=== PATIENT | male | born 1950 | race Caucasian/White ===

== ENCOUNTER 2017-04-25 10:57 | Inpatient (IN) ==
[2017-04-25] MEDS ORDERED: Naloxone 0.4 MG/ML INJ IVP PRN (14:50)
[2017-04-25] MEDS ORDERED: Ondansetron ODT 4 MG TAB.RAPDIS SL PRN (14:50)
[2017-04-25 15:12] LABS: Basophils # 0.1 K/mcL (0.0-0.2); Basophils % 0.8 %; Eosinophils # 0.7 K/mcL (0.0-0.6); Eosinophils % 10.9 %; Hematocrit 32.2 % (37.5-50.1); Hemoglobin 9.3 g/dL (12.9-16.9); Immature Granulocytes % 0.5 % (0-4); Lymphocytes # 1.3 K/mcL (0.6-4.6); Lymphocytes % 21.2 %; Mean Corpuscular HGB Conc 28.9 g/dL (31.6-35.5); Mean Corpuscular Hemoglobin 22.2 pg (28.0-33.3); Mean Platelet Volume 10.3 fL (9.4-12.4); Monocytes # 0.6 K/mcL (0.0-1.3); Neutrophils # 3.6 K/mcL (1.6-8.9); Platelet Count 154 K/mcL (140-400); Red Blood Count 4.18 M/mcL (4.19-5.50); Red Cell Distribution Width 19.5 % (11.5-14.5); Segmented Neutrophils % 57.6 %
[2017-04-25 15:25] LABS: Albumin 2.6 g/dL (3.5-5.0); Albumin/Globulin Ratio 0.6 (1.1-2.2); Bilirubin,Total 0.8 mg/dL (0.2-1.2); Calcium 8.8 mg/dL (8.6-10.8); Globulin 4.2 g/dL (2.4-3.5); Potassium 6.1 mEq/L (3.5-4.5); Total Protein 6.8 g/dL (6.0-8.3)
[2017-04-25 15:38] LABS: Hypochromasia Present (Not Present)
[2017-04-25 15:39] LABS: Anisocytosis 1+ (Not Present); Platelet Estimate Normal (Normal)
--- NOTE | 2017-04-25 15:44 | Internal Med History&Physical ---
<Gladys Wade - Last Filed: 04/25/17 16:11> Date of Encounter: 04/25/17 Time of Encounter: 15:36 Assessment and Plan (1) Renal failure (ARF), acute on chronic Current visit: Yes Status: Acute Creatinine increased to 3.3 today from 1.47 on admission to [facility] on 04/20. Patient was admitted with Sepsis and started on Vanc and zosyn. Once Cr bumped, vanc was stopped. Patient also had oliguria, and CT of abdomen and pelvis on 04/23 showed third spacing of fluid with small amount of ascites, anasarca, and mesenteric edema. BNP was also elevated throughout stay with most recent value of 1446 on 04/25. Patient was aggressively diuresed with lasix 100mg IVP BID plus zaroxolyn. Patient reports urine output has been gradually improving with 325mL out yesterday and 200mL out so far today. Hold home dose of benazapril Continue diuresis with daily zaroxolyn and 100mg Lasix IVP BID Retroperitoneal ultrasound ordered strict I/Os Nephrology/Dr. Oneal consulted. Qualifiers: Acute renal failure type: unspecified Chronic kidney disease stage: stage 3 (moderate) Qualified Code(s): N17.9 - Acute kidney failure, unspecified; N18.3 - Chronic kidney disease, stage 3 (moderate) (2) Acute exacerbation of congestive heart failure Current visit: Yes Status: Acute Patient has history of diastolic CHF. He is fluid overloaded with CT abd/ pelvis on 04/23 showing small amount of ascites, anasarca and mesenteric edema. CXR on 04/22 showed cardiomegaly with interstitial pulmonary edema. BNP has been elevated with most recent of 1446. Cardiac diet with 1.5L fluid restriction continuous hospital monitor daily weights strict I/Os Diurese with 100mg Lasix IVP BID plus daily zaroxolyn Qualifiers: Congestive heart failure type: diastolic Qualified Code(s): I50.33 - Acute on chronic diastolic (congestive) heart failure (3) Afib Current visit: Yes Status: Acute Patient with history of Afib on coumadin. His HR has been low, in 40s-50s. Will get an updated EKG. Hold Coreg for HR < 50. INR is supratherapeutic. Will have pharmacy dose coumadin. Continuous hospital monitor. Qualifiers: Atrial fibrillation type: paroxysmal Qualified Code(s): I48.0 - Paroxysmal atrial fibrillation (4) Anticoagulated on Coumadin Current visit: Yes Status: Acute Patient on coumadin for afib. INR is supratherapeutic at 3.6 this morning. Hold today's dose of coumadin. Check PT/INR/PTT daily. Pharmacy to dose coumadin. (5) Sepsis affecting skin Current visit: Yes Status: Acute Patient presented to [facility] on 04/20 with sepsis, chills, elevated WBC, Fever, elevated lactate of 2.45. Source was not identified as UA was reportedly not concerning for infection, CXR did not show pneumonia and blood cultures were still pending. Patient does have chronic BLE edema and has had recurrent episodes of cellulitis. His BLE are erythematous and edematous today , and his reports they look better than previous. I suspect his source of sepsis was cellulitis. His septic symptoms have resolved, he is afebrile and WBC is normal. Will continue Zosyn. (6) Type 2 diabetes mellitus Current visit: Yes Status: Acute Diabetic, heart healthy diet Check blood sugars ACHS sliding scale correction dose ACHS hypoglycemic protocol. Qualifiers: Diabetes mellitus complication status: with unspecified complications Diabetes mellitus residential insulin use: without technician terminal and repeater use Qualified Code( s): E11.8 - Type 2 diabetes mellitus with unspecified complications (7) Hyperkalemia Current visit: Yes Status: Acute Stat labs today revealed potassium of 6.1. Calcium gluconate, 10u insulin and amp of dextrose, as well as kayexalate ordered. Will recheck chemistry daily. Continuous hospital monitor. (8) Hyponatremia Current visit: Yes Status: Acute Sodium of 127, looks to be consistent with baseline at [facility]. Patient on fluid restricted diet of 1.5L daily. Check chemistry daily. (9) DVT prophylaxis Current visit: Yes Status: Acute Sequential compression devices. Patient on coumadin for afib, additional pharmacologic prophylaxis not warranted. Internal Medicine - H&P: HPI Chief complaint: TRELL on CKD Admitted From: Hospital to Hospital Transfer Plans for Post Hospital Care: Home History of present illness: Mr. Otero is a 66 year old male with hypertension, hyperlipidemia, type 2 diabetes, coronary artery disease status post CABG, atrial fibrillation on Coumadin, chronic kidney disease, diastolic CHF, peripheral vascular disease, ulcerative colitis status post partial colectomy transferred from [facility] for TRELL on chronic kidney disease. Patient presented to the hospital on the third with chills, shortness of breath, fever and body aches, was diagnosed with sepsis of unknown cause was treated with Zosyn and Vanc. While there, his sepsis symptoms improved, but his creatinine increased, and the vancomycin was discontinued. However his kidney function continued to decline with creatinine at discharge from their facility of 2.98, and oliguria with low urine output. He was aggressively diuresed, with Lasix 100 mg IV push twice a day with an addition of Zaroxolyn daily, patient reports his urine output has been improving the last few days with 325 mL out yesterday all day, and 200 mL out so far today. This is reportedly an improvement from 2 days ago. Patient follows with Dr. Collier for his chronic kidney disease as an outpatient. Dr. Escalante was called and he requested patient be transferred to our facility. As for the sepsis, UA was reportedly negative for infection, chest x-ray on the fifth showed cardiomegaly with interstitial pulmonary edema. CT of the abdomen and pelvis on the sixth showed no acute in her abdominal or pelvic abnormality, small amount of ascites, anasarca and mesenteric edema, and small bilateral pleural effusions. Patient does have bilateral lower extremity swelling, erythema and tenderness. He also has reportedly previous recurrent cellulitis of his lower extremities, this is likely the source of his sepsis. She is fluid overloaded, his BNP is elevated, most recently at 1446. Additionally his INR is supratherapeutic at 3.6. He is bradycardic with heart rate in the 40s and 50s, this is consistent with records from [place] as well. He is on a beta sachin, we will hold for heart rate less than 50. On exam, patient is resting comfortably, alert and oriented, in no acute distress. Heart has regular rhythm , bradycardic rate. Lungs are mostly clear with mild crackles in bilateral bases. Abdomen is distended, nontender, he does have bilateral lower extremity edema, and erythema. He is currently not complaining of any lightheadedness, chills, sweats, shortness of breath, chest pain, palpitations, nausea, vomiting , diarrhea, abdominal pain. Past Med Surg Social Fam HX - Past Medical History Medical history: atrial fibrillation, CHF, coronary artery disease, diabetes, GERD, hyperlipidemia, hypertension, peripheral artery disease, renal disease - Past Surgical History Surgical History: colectomy, coronary bypass (CABG), LE stent(s) - Social History Smoking Status: Former smoker (20 pack year history) Smokeless Tobacco Status: No Alcohol use: none Drug use: none - Family History Mother Adopted: No Family Member Ethnicity: Non- Living Status: Age at : 70 Cause of : unknown Hx Family Cardiac Disorders: Yes Hx Family Respiratory Disorders: No Hx Family Cancer: No Hx Family GI Disorders: No Hx Family Genitourinary Disorders: Yes (ESRD) Hx Family Endocrine Disorder: Yes (diabetes) Hx Family Musculoskeletal Disorders: No Hx Family Neurologic Disorders: No Hx Family HEENT Disorders: No Hx Family Autoimmune Disorders: No Hx Family Reproductive Disorders: No Hx Family Medical Disorders: No Father Living Status: Cause of : cirrhosis Hx Family GI Disorders: Yes (cirhosis) Internal Medicine - H&P: Meds Amlodipine Besylate/Benazepril [Lotrel 10-40 mg Capsule] 1 tab PO DAILY [History] Aspirin 81 mg PO DAILY 04/25/17 [History] Carvedilol [Coreg] 6.25 mg PO BID 04/25/17 [History] Clopidogrel [Plavix] 75 mg PO DAILY 04/25/17 [History] Furosemide [Lasix] 80 mg PO HS 04/25/17 [History] Gabapentin [Neurontin] 100 mg PO TID 04/25/17 [History] Isosorbide MONOnitrate (24 HR) [Imdur] 60 mg PO DAILY 04/25/17 [History] Magnesium Oxide [Mag-Ox] 400 mg PO DAILY 04/25/17 [History] Pantoprazole Sodium 40 mg PO DAILY 04/25/17 [History] Simvastatin [Zocor] 80 mg PO HS 04/25/17 [History] Warfarin [Coumadin] 2 mg PO MOWEFR 04/25/17 [History] Warfarin [Coumadin] 4 mg PO SUTUTHSA 04/25/17 [History] cloNIDine HCl [Clonidine HCl] 0.4 mg PO BID 04/25/17 [History] metOLazone [Zaroxolyn] 5 mg PO DAILY 04/25/17 [History] 3 Allergy/AdvReac Type Severity Reaction Status Date / Time No Known Allergies Allergy Verified 04/25/17 14:47 All Systems PM: A 10-system review of systems was performed and is negative for pertinent findings except as documented above in the HPI. - Constitutional Constitutional: no chills, no fever(s), no night sweats - EENT Eyes: no change in vision, no discharge, no pain, no photophobia Ears: no ear discharge, no ear pain, no tinnitus Nose, mouth and throat: no dysphagia, no nasal discharge, no neck pain, no sore throat - Cardiovascular Cardiovascular ROS IM: edema, no chest pain, no diaphoresis, no dyspnea, no lightheadedness, no palpitations, no syncope - Respiratory Respiratory: no cough, no dyspnea, no wheezing, no excessive phlegm production - Gastrointestinal Gastrointestinal: no abdominal pain, no diarrhea, no hematemesis, no hematochezia, no melena, no nausea, no vomiting - Genitourinary Genitourinary ROS male: difficulty urinating - Musculoskeletal Musculoskeletal ROS IM: no numbness, no tingling - Integumentary Integumentary IM: no rash, no unusual bruising - Neurological Neurological ROS: no confusion, no convulsions, no focal weakness, no numbness, no tingling, no tremor(s) - Hematologic/Lymphatic Hematologic/Lymphatic: no easy bruising - Constitutional Vitals: Temp Pulse Resp BP Pulse Ox 97.5 F L 50 18 125/64 93 04/25/17 13:33 04/25/17 13:33 04/25/17 13:33 04/25/17 13:33 04/25/17 13:33 General appearance: Present: A&O X 3, pleasant, no acute distress - Head Head exam: Present: atraumatic, normocephalic - Eye Eye exam: Present: PERRL, conjuntiva pink, sclera anicteric Pupils: Present: PERRL - Neck Neck exam general surgery: Present: supple, trachea midline. Absent: lymphadenopathy - Respiratory Respiratory exam: Present: rales (mild crackles in bilateral bases). Absent: accessory muscle use, rhonchi, wheezes - Cardiovascular Cardiovascular exam: Present: bradycardia, RRR, +S1, +S2. Absent: diastolic murmur, gallop, rubs, systolic murmur - GI/Abdominal GI/Abdominal exam: Present: distended, normal bowel sounds, no peritoneal signs. Absent: soft, tenderness - Extremities Exam Extremities exam: Present: pedal edema (+2 BLE edema, erythema), warm, radial pulses palpable and symmetrical. Absent: calf tenderness, cyanotic - Neurological Exam Neurological exam: Present: CN II-XII intact, oriented X3, no focal deficits. Absent: facial droop, speech deficit - Skin Skin exam: Present: dry, intact Internal Med - H&P Results - Labs CBC & Chem 7: 04/25/17 15:04 04/25/17 15:04 Labs: Short CBC 04/25/17 Range/Units 15:04 WBC 6.2 (4.3-11.1) K/mcL Hgb 9.3 L (12.9-16.9) g/dL Hct 32.2 L (37.5-50.1) % Plt Count 154 (140-400) K/mcL BMP 04/25/17 15:04 Sodium 127 L Potassium 6.1 H Chloride 96 L Carbon Dioxide 22 BUN 57 H Creatinine 3.39 H Glucose 151 H Calcium 8.8 Liver Function 04/25/17 Range/Units 15:04 Total Bilirubin 0.8 (0.2-1.2) mg/dL AST 10 (5-34) Units/L ALT 8 (0-55) Units/L Alkaline Phosphatase 236 H (38-126) Units/L Albumin 2.6 L (3.5-5.0) g/dL <Braydon Ruiz H - Last Filed: 04/25/17 16:59> Date of Encounter: 04/25/17 Internal Medicine - H&P: HPI History of present illness: Mr. Otero is a 66 year old male All Systems PM: A 10-system review of systems was performed and is negative for pertinent findings except as documented above in the HPI. - Constitutional Vitals: Temp Pulse Resp BP Pulse Ox 97 F L 51 18 153/72 94 04/25/17 16:04 04/25/17 16:04 04/25/17 16:04 04/25/17 16:04 04/25/17 16:04 Internal Med - H&P Results - Labs CBC & Chem 7: 04/25/17 15:04 09/08/17 15:04 Labs: Short CBC 04/25/17 Range/Units 15:04 WBC 6.2 (4.3-11.1) K/mcL Hgb 9.3 L (12.9-16.9) g/dL Hct 32.2 L (37.5-50.1) % Plt Count 154 (140-400) K/mcL Neutrophils # 3.6 (1.6-8.9) K/mcL BMP 04/25/17 15:04 Sodium 127 L Potassium 6.1 H Chloride 96 L Carbon Dioxide 22 BUN 57 H Creatinine 3.39 H Glucose 151 H Calcium 8.8 Liver Function 04/25/17 Range/Units 15:04 Total Bilirubin 0.8 (0.2-1.2) mg/dL AST 10 (5-34) Units/L ALT 8 (0-55) Units/L Alkaline Phosphatase 236 H (38-126) Units/L Albumin 2.6 L (3.5-5.0) g/dL - Attending Attestation -Acute renal failure likely secondary to vancomycin also in combination of Zosyn Vancomycin discontinued -Acute diastolic CHF/volume overload related to acute renal failure Continue IV Lasix alone and discontinue Zaroxolyn. Nephrology recommendations appreciated -Hyperkalemia, Kayexalate, calcium gluconate, insulin and D10, Kayexalate ordered Admit as inpatient, expected stable at 2 midnights. Full code time spent on this admission For this encounter, I have reviewed the PSYCHOTHERAPIST COUNSELOR or PA documentation, treatment plan, and medical decision making; and I have had face to face time with this patient.
[2017-04-25] MEDS ORDERED: *HR* Dextrose 50 % in Water (Syg) 50 ML SYRINGE IVP ONE (16:06)
[2017-04-25] MEDS ORDERED: Insulin Human Regular 10 UNIT in 0.9 % Sodium Chloride 10 ML IV ONE (16:06)
[2017-04-25] MEDS ORDERED: Calcium Gluconate 1,000 MG in D5% in Water 100 ML IVPB ONE (16:06)
[2017-04-25 16:20] LABS: INR 3.3; Prothrombin Time 36.6 Seconds (9.4-12.1)
[2017-04-25] MEDS ORDERED: D5% in Water 1,000 ML IVC PRN (16:21)
[2017-04-25] MEDS ORDERED: Dextrose Gel 15 GM PO PRN ×2 (16:21)
[2017-04-25] MEDS ORDERED: *HR* Dextrose 50 % in Water (Syg) 50 ML SYRINGE IVP PRN (16:21)
[2017-04-25] MEDS: Piperacillin/Tazobactam 3.375 GM in D5% in Water (Mini-Bag+) 100 ML IVPB SCH ×2 (16:50→23:11)
[2017-04-25] MEDS: Furosemide 40 MG/4 ML VIAL IVP SCH (16:51)
[2017-04-25] MEDS: Insulin LISPRO 300 UNITS/3 ML VIAL SQ SCH ×2 (16:52→23:11)
[2017-04-25] MEDS ORDERED: *HR* Warfarin 2 MG TABLET PO ONE (18:00)
[2017-04-25] MEDS: Gabapentin 100 MG CAPSULE PO SCH (20:29)
[2017-04-25] MEDS: cloNIDine HCl 0.1 MG TABLET PO SCH (20:29)
[2017-04-26 05:57] LABS: INR 3.2; Prothrombin Time 35.8 Seconds (9.4-12.1)
[2017-04-26 05:58] LABS: Basophils # 0.1 K/mcL (0.0-0.2); Basophils % 1.3 %; Eosinophils # 0.7 K/mcL (0.0-0.6); Eosinophils % 10.4 %; Hematocrit 32.6 % (37.5-50.1); Hemoglobin 9.8 g/dL (12.9-16.9); Immature Granulocytes % 0.3 % (0-4); Lymphocytes # 1.3 K/mcL (0.6-4.6); Lymphocytes % 19.9 %; Mean Corpuscular HGB Conc 30.1 g/dL (31.6-35.5); Mean Corpuscular Volume 76.5 fL (83.0-100.0); Monocytes # 0.7 K/mcL (0.0-1.3); Monocytes % 10.7 %; Neutrophils # 3.6 K/mcL (1.6-8.9); Platelet Count 166 K/mcL (140-400); Red Blood Count 4.26 M/mcL (4.19-5.50); Red Cell Distribution Width 19.9 % (11.5-14.5); Segmented Neutrophils % 57.4 %
[2017-04-26 06:00] LABS: Activated Partial Thrombo Time 45.3 Seconds (26.0-36.0)
[2017-04-26 06:07] LABS: Calcium 8.7 mg/dL (8.6-10.8); Potassium 5.6 mEq/L (3.5-4.5)
[2017-04-26 06:15] LABS: Anisocytosis 1+ (Not Present); Large Platelets Present (Not Present); Microcytosis Present (Not Present); Platelet Estimate Normal (Normal)
[2017-04-26] MEDS: amLODIPine 5 MG TABLET PO SCH (08:31)
[2017-04-26] MEDS: Aspirin 81 MG TAB.CHEW PO SCH (08:32)
[2017-04-26] MEDS: Isosorbide MONOnitrate (24 HR) 60 MG TAB.ER.24H PO SCH (08:32)
[2017-04-26] MEDS: Gabapentin 100 MG CAPSULE PO SCH ×3 (08:32→21:03)
[2017-04-26] MEDS: Piperacillin/Tazobactam 3.375 GM in D5% in Water (Mini-Bag+) 100 ML IVPB SCH ×3 (08:32→18:18)
[2017-04-26] MEDS: cloNIDine HCl 0.1 MG TABLET PO SCH ×3 (08:32→21:03)
[2017-04-26] MEDS: Furosemide 40 MG/4 ML VIAL IVP SCH (08:33)
[2017-04-26] MEDS: Insulin LISPRO 300 UNITS/3 ML VIAL SQ SCH ×4 (08:34→21:03)
[2017-04-26] MEDS: Magnesium Oxide 400 MG TABLET PO SCH (08:35)
--- NOTE | 2017-04-26 08:59 | Nephrology Consult Note ---
Date of Encounter: 04/26/17 Time of Encounter: 08:52 Assessment and Plan (1) TRELL (acute kidney injury) Current Visit: Yes Status: Acute No documented UOP in [employer], but presumed Oliguric TRELL on CKD stage III. He has been on massive IV lasix dosing but no reported ototoxicity. 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 Collier in December 2016. Hypervolemic Hyponatremia: from anasarca. Hx of CHF and there is concern for A/ C CHF exacerbation (as per primary) Hyperkalemia, acute: rebounding after kayexalate last night. AF on anticoagulation: to place a dialysis catheter, at least a temporary HD catheter, since his INR is near 3, he will have to have a femoral vein site, rather than IJ, to help lower the risk for bleeding I'll discuss the R/B/I and SE potentials and benefits vs risks of acute HD initiation vs expectant monitoring. Discussed in detail with the Hospitalist team. Will follow with you. Thank you for consulting the [facility] group. (2) CKD (chronic kidney disease), stage III Current Visit: Yes Status: Acute Baseline CKD stage III. He was trending worse back in December when last checked by Dr. Collier. (3) Oligouria Current Visit: Yes Status: Acute More accurately, he has been anuric while here. (4) Acute exacerbation of congestive heart failure Current Visit: Yes Status: Acute Will defer to primary. Fluid removal could be achieved with HD. I would recommend decreasing, actually holding the diuretics since he is starting HD today. Follow strict I/Os, daily weights and fluid as well as Na restriction. Qualifiers: Congestive heart failure type: diastolic Qualified Code(s): I50.33 - Acute on chronic diastolic (congestive) heart failure (5) Anticoagulated on Coumadin Current Visit: Yes Status: Acute Consider holding Coumadin, just in case if he does not have renal recovery and then would need a Permacath. (6) Hyperkalemia Current Visit: Yes Status: Acute See above (7) Hyponatremia Current Visit: Yes Status: Acute See above History of Present Illness - Reason for Consult Consult date: 04/25/17 Acute Kidney Injury, Chronic Kidney Disease Requesting physician: Braydon Ruiz - Chief Complaint TRELL on CKD, Oligouria, Edema, Hyperkalemia, Hyponatremia - History of Present Illness Tomas Otero is a very pleasant 66 y/o WM with a pmh of HTN, AF on Coumadin, CKD stage III (followed by Dr. Collier), PVD and et al who presented as a transfer from an outside hospital where he was initially diagnosed with sepsis secondary b/l LE acute on chronic cellulitis, TRELL, Hyperkalemia and Hyponatremia. He said he last saw Dr. Collier in December. He reported noticing sudden worsening of his LE edema last Friday after hoahaoism. He denied taking NSAIDs. He last saw Dr. Collier at the [facility] office in December and in her notes, he was taking just lasix 40mg po bid and clonidine 0.2mg po bid. He said that he was admitted to [facility] by Friday or Friday and treated with high dose lasix (about 100 to 120mg IV bid). Metolazone was later added, per report d/t diminishing UOP. He remains severely edematous and with worsening renal function each day including hyperkalemia and hyponatremia. He did not affirm CP but did report shortness of breath and did not describe N/V/F/C, dysuria. He did affirm having a diminished appetite but was able to eat breakfast this AM. Last night after arriving at [place], he received Kayexalate 30gm and his K transiently improved then rebounded high again today. The floor RN was present during my interview/exam. Past Med Surg Social Fam HX - Past Medical History Medical history: atrial fibrillation, CHF, coronary artery disease, diabetes, GERD, hyperlipidemia, hypertension, peripheral artery disease, renal disease - Past Surgical History Surgical History: colectomy, coronary bypass (CABG), LE stent(s) - Social History Smoking Status: Former smoker (20 pack year history) Smokeless Tobacco Status: No Alcohol use: none Drug use: none - Family History Mother Adopted: No Family Member Ethnicity: Non- Living Status: Age at : 70 Cause of : unknown Hx Family Cardiac Disorders: Yes Hx Family Respiratory Disorders: No Hx Family Cancer: No Hx Family GI Disorders: No Hx Family Genitourinary Disorders: Yes (ESRD) Hx Family Endocrine Disorder: Yes (diabetes) Hx Family Musculoskeletal Disorders: No Hx Family Neurologic Disorders: No Hx Family HEENT Disorders: No Hx Family Autoimmune Disorders: No Hx Family Reproductive Disorders: No Hx Family Medical Disorders: No Father Living Status: Cause of : cirrhosis Hx Family GI Disorders: Yes (cirhosis) Medications and Allergies Amlodipine Besylate/Benazepril [Lotrel 10-40 mg Capsule] 1 tab PO DAILY [History] Aspirin 81 mg PO DAILY 04/25/17 [History] Carvedilol [Coreg] 6.25 mg PO BID 04/25/17 [History] Clopidogrel [Plavix] 75 mg PO DAILY 04/25/17 [History] Furosemide [Lasix] 80 mg PO HS 04/25/17 [History] Gabapentin [Neurontin] 100 mg PO TID 04/25/17 [History] Isosorbide MONOnitrate (24 HR) [Imdur] 60 mg PO DAILY 04/25/17 [History] Magnesium Oxide [Mag-Ox] 400 mg PO DAILY 04/25/17 [History] Pantoprazole Sodium 40 mg PO DAILY 04/25/17 [History] Simvastatin [Zocor] 80 mg PO HS 04/25/17 [History] Warfarin [Coumadin] 2 mg PO MOWEFR 04/25/17 [History] Warfarin [Coumadin] 4 mg PO SUTUTHSA 04/25/17 [History] cloNIDine HCl [Clonidine HCl] 0.4 mg PO BID 04/25/17 [History] metOLazone [Zaroxolyn] 5 mg PO DAILY 04/25/17 [History] 3 Allergy/AdvReac Type Severity Reaction Status Date / Time No Known Allergies Allergy Verified 04/25/17 14:47 Review of Systems All Systems: reviewed and no additional remarkable complaints except as stated Exam - Vital Signs Vital signs: Initial Vital Signs Temp Pulse Resp BP Pulse Ox 97.5 F L 50 18 125/64 93 04/25/17 13:33 04/25/17 13:33 04/25/17 13:33 04/25/17 13:33 04/25/17 13:33 Vital Signs - Last 8 Hours Temp Pulse Resp BP Pulse Ox 04/26/17 07:56 97.8 F 61 17 146/67 94 04/26/17 04:13 98.5 F 60 16 158/77 92 Intake and Output 04/25/17 04/26/17 04/26/17 23:59 07:59 15:59 Intake Total 500 / 500 100 / 100 Output Total 0 / 0 Balance 500 / 500 100 / 100 Intake: IV Fluids 100 / 100 100 / 100 Zosyn 3.375 GM In 100 / 100 100 / 100 Dextrose 5% (Minibag+) 100 ML 100 ML @ 25 mls/hr IVPB Q8HR ESTRADA Rx#: [id number] Oral 400 / 400 0 / 0 Output: Urine 0 / 0 Other: Stool Size Large Moderate Stool Consistency soft loose liquid Stool Color Brown Brown Yellow # Voids 1 # Bowel Movements 3 1 Weight 96.434 kg Blood Glucose* 227 206 Patient Weight 04/26/17 23:59 Weight 96.434 kg - General Appearance General appearance: well-developed, well-nourished, appears started age, obese, fatigue, frail EENT: ATNC, PERRL, mucous membranes moist Neck: supple Respiratory: course breath sounds Cardiology: edema (tense anasarca up to thighs bilaterally), regular rate, irregular rhythm, normal S1, normal S2 Gastrointestinal: normoactive bowel sounds, no tenderness, no masses, obese Integumentary: erythema, chronic venous stasis Neurologic: no focal deficit, no asterixis, alert and oriented x3 Musculoskeletal: erythema, no cyanosis, no clubbing Psychiatric: mood/affect appropriate, cooperative Results - Lab Results 04/26/17 05:05 04/26/17 05:05 Most recent lab results Calcium 8.7 mg/dL (8.6-10.8) 04/26/17 05:05 I reviewed the above text [place] and also reviewed progress notes (both inpt and outpt), labs, vitals, I/Os, med lists and imaging. - Image Kidney/bladder ultrasound: report reviewed (No hydronephrosis ) Consult Discharge Plan - Plan Referrals: Stuart Cespedes MD [Primary Care Provider] -
[2017-04-26] MEDS ORDERED: metOLazone 5 MG TABLET PO SCH (09:00)
[2017-04-26] MEDS ORDERED: 0.9 % Sodium Chloride 250 ML IVC PRN (10:09)
--- NOTE | 2017-04-26 11:21 | Nephrology Procedure Note ---
Date of procedure: 04/26/17 Pre-op diagnosis: Acute renal failure with refractory hyperkalemia, anuria Post-op diagnosis: same Procedure Performed: femoral dialysis catheter Procedure: I reviewed in detail the risks, benefits, side effect potentials and described to him that his benefits for HD outweigh the potential risks. He both verbally and on paper consented to proceed with placement of a temporary HD catheter. Due to the fact that his INR is 3, only the femoral veins were assessed, which would lower his risks for bleeding. Timeout was performed with the floor nurse present. We marked the site of his left femoral vein, since his right femoral region had no identifiable femoral vein. I and my resident washed our hands and placed a sterile Mask, gown and gloves. A sterile drape was placed, utilizing both the dialysis catheter kit and a CVC kit. The resident placed about 3-4 mL of 1% lidocaine with good local anesthetic effect over the left femoral vein. I then utilized the finder needle and advanced it using real-time ultrasound into the left femoral vein, and on first attempt very slow, nonpulsative blood flow was aspirated. A second attempt was performed and no aspiration or cannulation was achieved. It appears that his femoral vein and femoral artery anatomy is not standard using real-time ultrasound. Plus his INR is about 3. Therefore, no further attempts were performed, and the patient was found to have good hemostatic effect with pressure for about 3-4 minutes. The patient tolerated this procedure well without nausea, chest pain, tachycardia, or vasovagal reaction, or any other adverse events. He tolerated the procedure well. I called and consulted interventional radiology Dr. Carreon to assist today ( Friday) in placing a temporary HD catheter. Anesthesia: local Surgeon: Booker Oneal Chief Bank Examiner: Tanvir Mccormack Estimated blood loss (cc): 5 IV fluids (cc): 0 Urine output (cc): 0 Pathology: none sent Condition: stable Disposition: no change
--- NOTE | 2017-04-26 14:02 | Internal Med Progress Note ---
<KlelauraTanvir goff - Last Filed: 04/26/17 13:51> Date of Encounter: 04/26/17 Time of Encounter: 10:00 - Assessment and plan (1) Renal failure (ARF), acute on chronic Current Visit: Yes Status: Acute Assessment and plan: - Presumed oliguric TRELL C Elsi stage III. - BUN/creatinine of 56/3.76, worsened since yesterday of 57/3.39 - Nephrology following - As being receiving Lasix, however is does not have documented urine output, will hold until he is able to make urine - Nephrology will plan on placing a temporary dialysis catheter today with dialysis this afternoon, tomorrow, Friday - Retroperitoneal ultrasound was negative for acute pathology - Change dose of clonidine to 0.1 mg 3 times a day Qualifiers: Acute renal failure type: unspecified Chronic kidney disease stage: stage 3 (moderate) Qualified Code(s): N17.9 - Acute kidney failure, unspecified; N18.3 - Chronic kidney disease, stage 3 (moderate) (2) Acute exacerbation of congestive heart failure Current Visit: Yes Status: Acute Assessment and plan: - BNP of 2631 emergency Department Fluid restriction, diuresis if he begins to make urine Plan for hemodialysis this afternoon once temporary catheter has been placed Carefully monitor I's and O's Qualifiers: Congestive heart failure type: diastolic Qualified Code(s): I50.33 - Acute on chronic diastolic (congestive) heart failure (3) Afib Current Visit: Yes Status: Acute Assessment and plan: Rate controlled at 61 bpm on carvedilol Warfarin, INR of 3.2, we will attempt to place dialysis catheter in the setting of supratherapeutic INR Qualifiers: Atrial fibrillation type: paroxysmal Qualified Code(s): I48.0 - Paroxysmal atrial fibrillation (4) Sepsis affecting skin Current Visit: Yes Status: Acute Assessment and plan: Reported sepsis from [facility] possibly secondary to bilateral lower extremity cellulitis She reports a significant history of chronic lower extremity edema and erythema and flaking We will continue Zosyn for time being, as vancomycin was discontinued secondary to worsening kidney function Has been afebrile, no white count, vital signs stable. 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 owner operator truck driver insulin use: without intermodal owner operator truck driver use Qualified Code( s): E11.8 - Type 2 diabetes mellitus with unspecified complications; N18.3 - Chronic kidney disease, stage 3 (moderate) (6) Hyperkalemia Current Visit: Yes Status: Acute Assessment and plan: Likely secondary to acute renal failure Most recently 5.6, increased from 5.3 Received calcium gluconate, insulin, Kayexalate upon admission for potassium of 5.9 No EKG changes Given rebound hyperkalemia, will plan for hemodialysis this afternoon once catheter has been placed all carefully monitor and trend (7) Hyponatremia Current Visit: Yes Status: Acute Assessment and plan: Nephrology following, appreciate recommendations Likely hypervolemic hyponatremia secondary to anasarca Will diuresis tolerated, fluid restriction, hemodialysis (8) DVT prophylaxis Current Visit: Yes Status: Acute Assessment and plan: Supratherapeutic INR of 3.2 this morning and Coumadin - Subjective Interval history: Patient was seen and examined at bedside this morning. He states he is feeling overall pretty well, but he does state he is quite anxious and scared about his overall prognosis. He is currently denying any symptoms of fevers, chills, abdominal pain, pain from a source, does admit to some mild shortness of breath. That is increased when lying flat. - Constitutional Vitals: Temp Pulse Resp BP Pulse Ox 97.6 F 58 18 150/74 95 04/26/17 11:23 04/26/17 11:23 04/26/17 11:23 04/26/17 11:23 04/26/17 11:23 General appearance: Present: A&O X 3, pleasant, no acute distress Exam: Gen.: Vitals noted. No acute distress. AAOx3 HEENT: PERRL/EOMI, oropharynx clear, Normocephalic, atraumatic Neck: Supple. No adenopathy. Cardiac: Irregularly irregular, no murmur, +S1/S2 Pulmonary: Bilateral mild rales, equal chest expansion Abdomen: soft, nontender, BS noted, no guarding : No urine output reported per nursing Back: Nontender throughout. MSK: ROM intact, no joint swelling noted Extremities: no BLE edema, nontender calf, no cyanosis or clubbing Neuro: A&Ox3, moves all extremities, no focal deficits Psych: Appropriate mood and behavior Internal Medicine: Result - Labs CBC & Chem 7: 04/26/17 05:05 04/26/17 05:05 Labs: Short CBC 04/25/17 04/26/17 Range/Units 15:04 05:05 WBC 6.2 6.3 (4.3-11.1) K/mcL Hgb 9.3 L 9.8 L (12.9-16.9) g/dL Hct 32.2 L 32.6 L (37.5-50.1) % Plt Count 154 166 (140-400) K/mcL Neutrophils # 3.6 3.6 (1.6-8.9) K/mcL BMP 04/25/17 04/25/17 04/26/17 15:04 22:01 05:05 Sodium 127 L 129 L Potassium 6.1 H 5.3 H 5.6 H Chloride 96 L 96 L Carbon Dioxide 22 19 BUN 57 H 56 H Creatinine 3.39 H 3.76 H Glucose 151 H 212 H Calcium 8.8 8.7 Liver Function 04/25/17 Range/Units 15:04 Total Bilirubin 0.8 (0.2-1.2) mg/dL AST 10 (5-34) Units/L ALT 8 (0-55) Units/L Alkaline Phosphatase 236 H (38-126) Units/L Albumin 2.6 L (3.5-5.0) g/dL - ABG Interpretation ABG results: PT/INR, D-dimer PT 35.8 Seconds (9.4-12.1) H 04/26/17 05:05 - Impressions Impressions Retroperitoneum Ultrasound 04/25/17 18:30 IMPRESSION: Limited in insonation, related to body habitus and anasarca. No hydronephrosis is identified. Incidental note of ascites, mild gallbladder wall thickening, and cholelithiasis. D/ / Agustin Garcia MD / Agustin Garcia MD Interpreting Provider: Agustin Garcia MD - VTE Documentation of Mechanical Device: Intermittent pneumatic compression device Consult Discharge Plan - Plan Referrals: Stuart Cespedes MD [Primary Care Provider] - <Pipe Lerner Libby - Last Filed: 04/26/17 18:34> Date of Encounter: 04/26/17 - Assessment and plan (1) Acute respiratory failure with hypoxia Current Visit: Yes Status: Acute Assessment and plan: Wean oxygen as able. (2) Acute exacerbation of congestive heart failure Current Visit: Yes Status: Acute Qualifiers: Congestive heart failure type: diastolic Qualified Code(s): I50.33 - Acute on chronic diastolic (congestive) heart failure (3) Afib Current Visit: Yes Status: Acute Qualifiers: Atrial fibrillation type: paroxysmal Qualified Code(s): I48.0 - Paroxysmal atrial fibrillation (4) Renal failure (ARF), acute on chronic Current Visit: Yes Status: Acute Qualifiers: Acute renal failure type: unspecified Chronic kidney disease stage: stage 3 (moderate) Qualified Code(s): N17.9 - Acute kidney failure, unspecified; N18.3 - Chronic kidney disease, stage 3 (moderate) (5) Hyperkalemia Current Visit: Yes Status: Acute (6) Type 2 diabetes mellitus Current Visit: Yes Status: Acute Qualifiers: Diabetes mellitus complication status: with kidney complications Diabetes mellitus complication detail: with chronic kidney disease Diabetes mellitus retirement insulin use: without intermodal owner operator truck driver use Chronic kidney disease stage: stage 3 (moderate) Qualified Code(s): E11.22 - Type 2 diabetes mellitus with diabetic chronic kidney disease; N18.3 - Chronic kidney disease, stage 3 ( moderate) - Constitutional Vitals: Temp Pulse Resp BP Pulse Ox 97.9 F 58 18 142/77 95 04/26/17 17:55 04/26/17 11:23 04/26/17 17:55 04/26/17 17:55 04/26/17 11:23 Internal Medicine: Result - Labs CBC & Chem 7: 04/26/17 05:05 04/26/17 05:05 Labs: Short CBC 04/26/17 Range/Units 05:05 WBC 6.3 (4.3-11.1) K/mcL Hgb 9.8 L (12.9-16.9) g/dL Hct 32.6 L (37.5-50.1) % Plt Count 166 (140-400) K/mcL Neutrophils # 3.6 (1.6-8.9) K/mcL BMP 04/25/17 04/26/17 22:01 05:05 Sodium 129 L Potassium 5.3 H 5.6 H Chloride 96 L Carbon Dioxide 19 BUN 56 H Creatinine 3.76 H Glucose 212 H Calcium 8.7 Urine 04/26/17 Range/Units Unknown Urine Color Yellow (Yellow) Urine Clarity Cloudy A (Clear) Urine pH 5.5 (5.0-8.0) pH Units Ur Specific [place] 1.019 (1.010-1.025) Urine Protein Trace (Neg-Trace) mg/dL Urine Glucose (UA) Normal (Normal) mg/dL - ABG Interpretation ABG results: PT/INR, D-dimer PT 35.8 Seconds (9.4-12.1) H 04/26/17 05:05 - Impressions Impressions Retroperitoneum Ultrasound 04/25/17 18:30 IMPRESSION: Limited in insonation, related to body habitus and anasarca. No hydronephrosis is identified. Incidental note of ascites, mild gallbladder wall thickening, and cholelithiasis. D/ / Agustin Garcia MD / Agustin Garcia MD Interpreting Provider: Agustin Garcia MD Guidance Needle Placement Ultrasound 04/26/17 00:00 IMPRESSION: Ultrasound and fluoroscopic guided placement of a temporary right IJ hemodialysis catheter. The catheter is ready for immediate use. D/ / Tanvir Carreon MD / Tanvir Carreon MD Interpreting Provider: Tanvir Carreon MD Insertion Non-Tunneled Catheter 04/26/17 00:00 IMPRESSION: Ultrasound and fluoroscopic guided placement of a temporary right IJ hemodialysis catheter. The catheter is ready for immediate use. D/ / Tanvir Carreon MD / Tanvir Carreon MD Interpreting Provider: Tanvir Carreon MD - Attending Attestation I examined this patient and my medical decision-making was reviewed with the Resident Physician on 04/26/17. I agree with the documented findings, disposition and treatment plan as described except to the extent set forth below. Mr. Otero is currently admitted for exac CHF and acute on chronic renal failure. He is high risk due to new dialysis start today and resp issues. Mr. Otero is worried and afraid. Dialysis to start today. No fever or chills. No pain. Eam Alert Anxious Heart reg Lungs with rales Abd soft Edema present I/P 1. CHF 2. Renal failure Further diagnoses and plan as above.
[2017-04-26] MEDS ORDERED: Heparin 1,000 UNITS/500 mL NS 500 ML ONE (14:36)
[2017-04-26 14:52] LABS: Bilirubin,Urine Negative (Negative); Blood,Urine Negative (Negative); Clarity,Urine Cloudy (Clear); Color,Urine Yellow (Yellow); Glucose,Urine (UA) Normal (Normal); Ketones,Urine Negative (Negative); Leukocyte Esterase,Urine Negative (Negative); Nitrite,Urine Negative (Negative); PH,Urine 5.5 pH Units (5.0-8.0); Protein,Urine Trace mg/dL (Neg-Trace); Specific Gravity,Urine 1.019 (1.010-1.025); Urobilinogen,Urine Normal (Normal)
[2017-04-26 14:55] LABS: Bacteria,Urine None Seen per hpf (None-Few); Hyaline Casts,Urine None Seen per lpf (None-Few); Squamous Epithelial Cell,Urine Many per lpf (None-Few)
[2017-04-26 15:11] LABS: RBC,Urine 0-3 per hpf (0-3)
--- NOTE | 2017-04-26 15:21 | IR Procedure Note ---
Date of procedure: 04/26/17 Consent Obtained: Verbal consent, Written consent Timeout: Correct patient and procedure verified, Correct site verified, Time out performed, Skin prep completed Local anesthetic: Lidocaine 1% Indications: Renal failure Procedure Performed: Temp HD catheter placement Site/Technique: Right IJ temp HD catheter placed in VIR Results/Findings: Temp distal tip at SVC/RA junction Estimated blood loss (cc): 1 Complications: None; Tolerated procedure well Post Procedure Treatment Plan: May use temp HD catheter now
[2017-04-26] MEDS ORDERED: Warfarin perPT PO PRN (18:00)
[2017-04-26] MEDS ORDERED: 0.9 % Sodium Chloride 1,000 ML ONE (18:08)
[2017-04-26 19:00] LABS: Hepatitis B Surface Antigen Nonreactive (Nonreactive)
[2017-04-27] MEDS: Acetaminophen 325 MG TABLET PO PRN (01:51)
[2017-04-27] MEDS: Piperacillin/Tazobactam 3.375 GM in D5% in Water (Mini-Bag+) 100 ML IVPB SCH (05:05)
[2017-04-27 05:15] LABS: Hemoglobin 8.9 g/dL (12.9-16.9); Immature Granulocytes % 0.3 % (0-4); Mean Corpuscular Hemoglobin 22.9 pg (28.0-33.3); Red Blood Count 3.88 M/mcL (4.19-5.50); Red Cell Distribution Width 19.9 % (11.5-14.5)
[2017-04-27 05:17] LABS: Basophils # 0.1 K/mcL (0.0-0.2); Basophils % 0.7 %; Eosinophils # 0.4 K/mcL (0.0-0.6); Eosinophils % 6.5 %; Hematocrit 29.7 % (37.5-50.1); INR 2.5; Immature Platelets 10.3 % (1.1-6.1); Lymphocytes # 1.3 K/mcL (0.6-4.6); Lymphocytes % 18.6 %; Mean Corpuscular Volume 76.5 fL (83.0-100.0); Monocytes # 0.9 K/mcL (0.0-1.3); Monocytes % 12.6 %; Neutrophils # 4.2 K/mcL (1.6-8.9); Platelet Count 147 K/mcL (140-400); Prothrombin Time 27.6 Seconds (9.4-12.1); Segmented Neutrophils % 61.3 %
[2017-04-27 05:27] LABS: Calcium 8.7 mg/dL (8.6-10.8); Potassium 4.9 mEq/L (3.5-4.5); Uric Acid 7.9 mg/dL (3.5-7.2)
[2017-04-27 05:45] LABS: Anisocytosis 2+ (Not Present); Hypochromasia Present (Not Present); Microcytosis Present (Not Present); Platelet Estimate Decreased (Normal)
[2017-04-27] MEDS: cloNIDine HCl 0.1 MG TABLET PO SCH ×3 (08:07→20:44)
[2017-04-27] MEDS: amLODIPine 5 MG TABLET PO SCH (08:07)
[2017-04-27] MEDS: Isosorbide MONOnitrate (24 HR) 60 MG TAB.ER.24H PO SCH (08:07)
[2017-04-27] MEDS: Insulin LISPRO 300 UNITS/3 ML VIAL SQ SCH ×4 (08:08→21:04)
[2017-04-27] MEDS: Magnesium Oxide 400 MG TABLET PO SCH (08:09)
[2017-04-27] MEDS: Gabapentin 100 MG CAPSULE PO SCH ×3 (08:09→20:44)
[2017-04-27] MEDS: Aspirin 81 MG TAB.CHEW PO SCH (08:09)
--- NOTE | 2017-04-27 09:04 | Internal Med Progress Note ---
<Tanvir Mccormack - Last Filed: 04/27/17 10:30> Date of Encounter: 04/27/17 Time of Encounter: 09:02 - Assessment and plan (1) Renal failure (ARF), acute on chronic Current Visit: Yes Status: Acute Assessment and plan: - Presumed oliguric TRELL on CKD stage III. - BUN/creatinine of 45/3.30. Improved from yesterday - Nephrology following, appreciate recommendations - Urine Output yesterday, was previously oliguric. Tolerated his first dialysis session yesterday without complications - We will receive dialysis again today and tomorrow. - Electrolyte imbalances improving - Retroperitoneal ultrasound was negative for acute pathology Qualifiers: Acute renal failure type: unspecified Chronic kidney disease stage: stage 3 (moderate) Qualified Code(s): N17.9 - Acute kidney failure, unspecified; N18.3 - Chronic kidney disease, stage 3 (moderate) (2) Acute exacerbation of congestive heart failure Current Visit: Yes Status: Acute Assessment and plan: - BNP of 2631 emergency Department Fluid restriction, we will continue to hold diuresis and monitor for increased urine output. Fluid will be taken off in dialysis Plan for hemodialysis this afternoon Carefully monitor I's and O's, -1.2 L taken off yesterday Qualifiers: Congestive heart failure type: diastolic Qualified Code(s): I50.33 - Acute on chronic diastolic (congestive) heart failure (3) Afib Current Visit: Yes Status: Acute Assessment and plan: Rate controlled at 51 bpm on carvedilol Temporary dialysis catheter placed successfully in the presence of INR of 3.2 yesterday. Continue Coumadin for anticoagulation. INR 2.5 today Qualifiers: Atrial fibrillation type: paroxysmal Qualified Code(s): I48.0 - Paroxysmal atrial fibrillation (4) Sepsis affecting skin Current Visit: Yes Status: Acute Assessment and plan: - Reported sepsis from [facility] possibly secondary to bilateral lower extremity cellulitis - He reports a significant history of chronic lower extremity edema and erythema and flaking - We will transition to Ancef this afternoon as it is greater skin laly coverage, 1 g every 8 hours (5) Type 2 diabetes mellitus Current Visit: Yes Status: Acute Assessment and plan: Sugar of 191 most recently no documented A1c and records Sliding insulin scale Qualifiers: Diabetes mellitus complication status: with kidney complications Diabetes mellitus complication detail: with chronic kidney disease Diabetes mellitus long-term insulin use: without long-term use Chronic kidney disease stage: stage 3 (moderate) Qualified Code(s): E11.22 - Type 2 diabetes mellitus with diabetic chronic kidney disease; N18.3 - Chronic kidney disease, stage 3 ( moderate) (6) Hyperkalemia Current Visit: Yes Status: Acute Assessment and plan: Likely secondary to acute renal failure Most recent of 4.9, improved since yesterday of 5.6 after receiving dialysis Received calcium gluconate, insulin, Kayexalate upon admission for potassium of 5.9 No EKG changes We will continue to trend after dialysis this afternoon (7) Hyponatremia Current Visit: Yes Status: Acute Assessment and plan: Nephrology following, appreciate recommendations Likely hypervolemic hyponatremia secondary to anasarca Improved from yesterday, most recently 133, up from 129 Uric acid of 7.9, unlikely SIADH etiology Will diuresis tolerated, fluid restriction, hemodialysis (8) DVT prophylaxis Current Visit: Yes Status: Acute Assessment and plan: INR 2.5 this morning and Coumadin - Time Spent With Patient 25 - 35 minutes - Subjective Interval history: Patient was seen and examined at bedside this morning. He states he is feeling better suggested. He tolerated his first dialysis session yesterday afternoon without complaints. His breathing has also improved. He denies any symptoms of fevers, chills, shortness of breath, cough, abdominal pain. He does state that his dialysis catheter was bleeding a small amount last night, however the bleeding has since stopped. He also states he slept much better than yesterday. He also states that he was able to urinate since 500 mL yesterday which is a large improvement from the day before of 50 mL. - Constitutional Vitals: Temp Pulse Resp BP Pulse Ox 97.6 F 61 18 167/69 94 04/27/17 07:57 04/27/17 07:57 04/27/17 07:57 04/27/17 07:57 04/27/17 07:57 General appearance: Present: A&O X 3, pleasant, no acute distress Exam: Gen.: Vitals noted. No acute distress. AAOx3 HEENT: PERRL/EOMI, oropharynx clear, Normocephalic, atraumatic Neck: Supple. No adenopathy. Compression bandage over right IJ temporary dialysis catheter, no signs of bleed. Cardiac: Irregularly irregular rhythm, no murmur, +S1/S2 Pulmonary: CTA bilaterally, no wheezes, rales or rhonchi, equal chest expansion Abdomen: soft, nontender, BS noted, no guarding, mildly distended Back: Nontender throughout. MSK: ROM intact, no joint swelling noted Extremities: no BLE edema, nontender calf, no cyanosis or clubbing Neuro: A&Ox3, moves all extremities, no focal deficits Psych: Appropriate mood and behavior Internal Medicine: Result - Labs CBC & Chem 7: 04/27/17 04:45 04/27/17 04:45 Labs: Short CBC 04/27/17 Range/Units 04:45 WBC 6.8 (4.3-11.1) K/mcL Hgb 8.9 L (12.9-16.9) g/dL Hct 29.7 L (37.5-50.1) % Plt Count 147 (140-400) K/mcL Neutrophils # 4.2 (1.6-8.9) K/mcL BMP 04/27/17 04:45 Sodium 133 L Potassium 4.9 H Chloride 98 Carbon Dioxide 23 BUN 45 H D Creatinine 3.30 H Glucose 183 H Calcium 8.7 Urine 04/26/17 Range/Units Unknown Urine Color Yellow (Yellow) Urine Clarity Cloudy A (Clear) Urine pH 5.5 (5.0-8.0) pH Units Ur Specific [place] 1.019 (1.010-1.025) Urine Protein Trace (Neg-Trace) mg/dL Urine Glucose (UA) Normal (Normal) mg/dL - ABG Interpretation ABG results: PT/INR, D-dimer PT 27.6 Seconds (9.4-12.1) H 04/27/17 04:45 - Impressions Impressions Guidance Needle Placement Ultrasound 04/26/17 00:00 IMPRESSION: Ultrasound and fluoroscopic guided placement of a temporary right IJ hemodialysis catheter. The catheter is ready for immediate use. D/ / Tanvir Carreon MD / Tanvir Carreon MD Interpreting Provider: Tanvir Carreon MD Insertion Non-Tunneled Catheter 04/26/17 00:00 IMPRESSION: Ultrasound and fluoroscopic guided placement of a temporary right IJ hemodialysis catheter. The catheter is ready for immediate use. D/ / Tanvir Carreon MD / Tanvir Carreon MD Interpreting Provider: Tanvir Carreon MD - VTE Documentation of Mechanical Device: Graduated compression elastic hosiery Consult Discharge Plan - Plan Referrals: Stuart Cespedes MD [Primary Care Provider] - <Pipe Lerner - Last Filed: 04/27/17 16:47> Date of Encounter: 04/27/17 - Assessment and plan (1) Acute respiratory failure with hypoxia Current Visit: Yes Status: Acute Assessment and plan: Doing better. Will wean as able as dialysis continues. (2) Acute exacerbation of congestive heart failure Current Visit: Yes Status: Acute Qualifiers: Congestive heart failure type: diastolic Qualified Code(s): I50.33 - Acute on chronic diastolic (congestive) heart failure (3) Afib Current Visit: Yes Status: Acute Qualifiers: Atrial fibrillation type: paroxysmal Qualified Code(s): I48.0 - Paroxysmal atrial fibrillation (4) Renal failure (ARF), acute on chronic Current Visit: Yes Status: Acute Qualifiers: Acute renal failure type: unspecified Chronic kidney disease stage: stage 3 (moderate) Qualified Code(s): N17.9 - Acute kidney failure, unspecified; N18.3 - Chronic kidney disease, stage 3 (moderate) (5) Hyperkalemia Current Visit: Yes Status: Acute (6) Type 2 diabetes mellitus Current Visit: Yes Status: Acute Qualifiers: Diabetes mellitus complication status: with kidney complications Diabetes mellitus complication detail: with chronic kidney disease Diabetes mellitus director long term care insulin use: without long-term use Chronic kidney disease stage: stage 3 (moderate) Qualified Code(s): E11.22 - Type 2 diabetes mellitus with diabetic chronic kidney disease; N18.3 - Chronic kidney disease, stage 3 ( moderate) - Constitutional Vitals: Temp Pulse Resp BP Pulse Ox 98.2 F 61 18 164/85 94 04/27/17 15:34 04/27/17 07:57 04/27/17 15:34 04/27/17 15:34 04/27/17 07:57 Internal Medicine: Result - Labs CBC & Chem 7: 04/27/17 04:45 04/27/17 04:45 Labs: Short CBC 04/27/17 Range/Units 04:45 WBC 6.8 (4.3-11.1) K/mcL Hgb 8.9 L (12.9-16.9) g/dL Hct 29.7 L (37.5-50.1) % Plt Count 147 (140-400) K/mcL Neutrophils # 4.2 (1.6-8.9) K/mcL BMP 04/27/17 04:45 Sodium 133 L Potassium 4.9 H Chloride 98 Carbon Dioxide 23 BUN 45 H D Creatinine 3.30 H Glucose 183 H Calcium 8.7 - ABG Interpretation ABG results: PT/INR, D-dimer PT 27.6 Seconds (9.4-12.1) H 04/27/17 04:45 - Impressions Impressions Guidance Needle Placement Ultrasound 04/26/17 00:00 IMPRESSION: Ultrasound and fluoroscopic guided placement of a temporary right IJ hemodialysis catheter. The catheter is ready for immediate use. D/ / Tanvir Carreon MD / Tanvir Carreon MD Interpreting Provider: Tanvir Carreon MD Insertion Non-Tunneled Catheter 04/26/17 00:00 IMPRESSION: Ultrasound and fluoroscopic guided placement of a temporary right IJ hemodialysis catheter. The catheter is ready for immediate use. D/ / Tanvir Carreon MD / Tanvir Carreon MD Interpreting Provider: Tanvir Carreon MD - Attending Attestation I examined this patient and my medical decision-making was reviewed with the Resident Physician on 04/27/17. I agree with the documented findings, disposition and treatment plan as described except to the extent set forth below. Mr. Otero is currently admitted for acute on chronic renal failure. He remains moderate to high risk due to potential for worsening renal and electrolyte issues. Mr Otero is doing OK. He tolerated dialysis yesterday but was frightened. No fever or chills. No CP. SOB OK. No GI issues. Had some bleeding from catheter site last night. Exam Alert. Comfortable Pressure dressing on neck Mucus membranes dry Heart irreg not tachy Lungs diminished Abd soft Legs with erythema bilaterally. I/P 1. TRELL on CKD 2, Cellulitis versus venous stasis Further diagnoses and plan as above.
[2017-04-27] MEDS ORDERED: 0.9 % Sodium Chloride 250 ML IVC PRN (09:10)
--- NOTE | 2017-04-27 10:09 | Nephrology Progress Note ---
Date of Encounter: 04/27/17 Time of Encounter: 09:15 - Assessment and Plan (1) TRELL (acute kidney injury) Current Visit: Yes Status: Acute Next HD is planned for today: 2.5hr, 2K, goal UF 3kg Hyperkalemia and hyponatremia slowly improving with HD initiation yesterday RIJ temporary HD catheter was placed placed with IR's assistance yesterday; oozing but with pressuring dressing he appears stable. Consider holding Coumadin, just in case he were to need a Permacath, if he does not improve towards the end of this week Discussed with the Hospitalists resident. (2) CKD (chronic kidney disease), stage III Current Visit: Yes Status: Acute B/l CKD stage III (3) Oligouria Current Visit: Yes Status: Acute Continue strict I/Os to help assess if he has any signs of renal recovery (4) Acute exacerbation of congestive heart failure Current Visit: Yes Status: Acute As per primary Qualifiers: Congestive heart failure type: diastolic Qualified Code(s): I50.33 - Acute on chronic diastolic (congestive) heart failure (5) Anticoagulated on Coumadin Current Visit: Yes Status: Acute See above (6) Hyperkalemia Current Visit: Yes Status: Acute Low K+ / renal diet. Due to his TRELL on CKD stage III. (7) Hyponatremia Current Visit: Yes Status: Acute Hypervolemic hyponatremia. Trending better. Subjective Principal diagnosis: TRELL, Anasarca Interval history: Pt was s/e and he reported feeling tired but did not affirm N/V or CP. He completed HD yesterday after receiving a temporary RIJ HD catheter. He did have ozzing from it and pressure dressing was applied. He said his family and paster have all visited him. He was by himself in the room this Am. Objective - Vital Signs Vital signs: Vital Signs Temp Pulse Resp BP Pulse Ox 04/27/17 07:57 97.6 F 61 18 167/69 94 04/27/17 03:37 98.2 F 51 17 159/73 93 04/26/17 23:51 97.5 F L 60 17 142/74 94 04/26/17 21:06 98.2 F 55 18 165/80 95 04/26/17 17:55 97.9 F 18 142/77 04/26/17 17:35 117/61 04/26/17 17:20 112/58 04/26/17 17:05 122/68 04/26/17 16:50 131/67 04/26/17 16:35 107/58 04/26/17 16:20 111/55 04/26/17 16:05 125/68 04/26/17 15:50 128/60 04/26/17 15:35 97.8 F 18 131/74 04/26/17 11:23 97.6 F 58 18 150/74 95 Intake and Output 04/26/17 04/27/17 04/27/17 23:59 07:59 15:59 Intake Total 520 / 520 100 / 100 50 / 50 Output Total 2600 / 2600 380 / 380 0 / 0 Balance -2080 / -2080 -280 / -280 50 / 50 Intake: IV Fluids 100 / 100 Zosyn 3.375 GM In 100 / 100 Dextrose 5% (Minibag+) 100 ML 100 ML @ 25 mls/hr IVPB Q12HR [facility] Rx#: [id number] Oral 520 / 520 50 / 50 Output: Urine 0 / 0 380 / 380 0 / 0 Total Dialysis (HD) 2600 / 2600 Output Other: Meal Dinner Percent of Meal Consumed 35% Stool Size Large Stool Consistency liquid Stool Characteristics [place] Stool Color Brown # Voids 1 # Bowel Movements 1 Weight 99.79 kg Blood Glucose* 194 191 Hemodialysis Net Fluid 2000 Removed (mL) Patient Weight 04/27/17 23:59 Weight 99.79 kg - General Appearance General appearance: Present: well-developed, well-nourished, appears started age EENT: Present: ATNC, PERRL, mucous membranes moist Additional Comments: Right anterior triangel with pressure dressing noted. Respiratory: Present: clear Cardiology: Present: edema, regular rhythm, normal S1, normal S2 Dialysis Vascular Access: Venous Catheter (RIJ temporary HD catheter) Gastrointestinal: Present: normoactive bowel sounds, no tenderness, no guarding Integumentary: Present: warm and dry, erythema, chronic venous stasis Neurologic: Present: no focal deficit, no asterixis, alert and oriented x3 Musculoskeletal: Present: no deformities, erythema Psychiatric: Present: mood/affect appropriate, cooperative - Lab 04/27/17 04:45 04/27/17 04:45 Most recent lab results Calcium 8.7 mg/dL (8.6-10.8) 04/27/17 04:45 Urine Creatinine 62 mg/dL 04/26/17 Unknown Urine Sodium 56.0 mEq/L 04/26/17 Unknown Urine Total Protein 32 mg/dL (1-14) H 04/26/17 Unknown - VTE Documentation of Mechanical Device: Graduated compression elastic hosiery Consult Discharge Plan - Plan Referrals: Stuart Cespedes MD [Primary Care Provider] -
[2017-04-27] MEDS: ceFAZolin 1,000 MG in D5% in Water (Mini-Bag+) 100 ML IVPB SCH (16:08)
[2017-04-27] MEDS ORDERED: 0.9 % Sodium Chloride 1,000 ML ONE (16:28)
[2017-04-27] MEDS ORDERED: *HR* Warfarin 2 MG TABLET PO ONE (18:00)
[2017-04-28] MEDS: ceFAZolin 1,000 MG in D5% in Water (Mini-Bag+) 100 ML IVPB SCH ×2 (00:38→09:02)
[2017-04-28 05:04] LABS: Red Cell Distribution Width 19.9 % (11.5-14.5)
[2017-04-28 05:05] LABS: Hemoglobin 9.7 g/dL (12.9-16.9); Mean Corpuscular HGB Conc 29.4 g/dL (31.6-35.5); Mean Corpuscular Hemoglobin 22.8 pg (28.0-33.3); Mean Corpuscular Volume 77.5 fL (83.0-100.0); Mean Platelet Volume 10.7 fL (9.4-12.4); Platelet Count 137 K/mcL (140-400); Red Blood Count 4.26 M/mcL (4.19-5.50)
[2017-04-28 05:06] LABS: Prothrombin Time 21.5 Seconds (9.4-12.1)
[2017-04-28 05:13] LABS: Calcium 9.1 mg/dL (8.6-10.8); Phosphorous 4.1 mg/dL (2.3-4.7)
[2017-04-28 05:36] LABS: Hemoglobin A1C 9.7 %
[2017-04-28] MEDS: Insulin LISPRO 300 UNITS/3 ML VIAL SQ SCH ×4 (09:02→21:37)
[2017-04-28] MEDS: amLODIPine 5 MG TABLET PO SCH (09:03)
[2017-04-28] MEDS: Aspirin 81 MG TAB.CHEW PO SCH (09:04)
[2017-04-28] MEDS: Isosorbide MONOnitrate (24 HR) 60 MG TAB.ER.24H PO SCH (09:04)
[2017-04-28] MEDS: cloNIDine HCl 0.1 MG TABLET PO SCH ×3 (09:04→21:12)
[2017-04-28] MEDS: Magnesium Oxide 400 MG TABLET PO SCH (09:04)
[2017-04-28] MEDS: Gabapentin 100 MG CAPSULE PO SCH ×3 (09:05→21:12)
--- NOTE | 2017-04-28 09:40 | Nephrology Progress Note ---
Date of Encounter: 04/28/17 Time of Encounter: 09:30 - Assessment and Plan (1) TRELL (acute kidney injury) Current Visit: Yes Status: Acute Next HD is planned for today, 3rd of initial 3: 3hr, 3Kg goal UF Hyperkalemia and hyponatremia slowly improving with HD initiation yesterday RIJ temporary HD catheter: appears stable and no longer ozzing. Continue holding Coumadin, just in case he were to need a Permacath, if he does not improve towards the end of this week Urinary retention noted with 500 cc in bladder. I recommend concepcion and the floor RN said Urology was consulted d/t difficulty in placement. Discussed with the Hospitalists resident, the patient and the patient's . Will assess UOP and SCr on Friday and by Friday, his SCr trend will inform us if he has renal recovery or if he'll need a Permacath. (2) CKD (chronic kidney disease), stage III Current Visit: Yes Status: Acute B/l CKD stage III (3) Oligouria Current Visit: Yes Status: Acute Continue strict I/Os to help assess if he has any signs of renal recovery (4) Acute exacerbation of congestive heart failure Current Visit: Yes Status: Acute As per primary Qualifiers: Congestive heart failure type: diastolic Qualified Code(s): I50.33 - Acute on chronic diastolic (congestive) heart failure (5) Anticoagulated on Coumadin Current Visit: Yes Status: Acute See above (6) Hyperkalemia Current Visit: Yes Status: Acute Low K+ / renal diet. Due to his TRELL on CKD stage III. (7) Hyponatremia Current Visit: Yes Status: Acute Hypervolemic hyponatremia. Trending better. Subjective Principal diagnosis: TRELL, Anasarca Interval history: Pt was s/e this AM. He reported being unable to empty his bladder. His was present and updated on the plan for a 3rd of 3 initiation HD treatments. She asked about metolazone that was started as an outpatient, which has been held now that he has been receiving dialysis. The pt did not affirm CP, shortness of breath, N/V and said that he ate his breakfast today. Objective - Vital Signs Vital signs: Vital Signs Temp Pulse Resp BP Pulse Ox 04/28/17 07:54 97.5 F L 67 17 165/73 97 04/28/17 04:01 98.0 F 69 16 178/82 90 04/28/17 00:23 98.8 F 61 16 149/75 94 04/27/17 19:45 98.6 F 64 16 174/71 94 04/27/17 16:54 98 F 65 18 169/79 95 04/27/17 15:34 98.2 F 18 164/85 04/27/17 15:25 166/82 04/27/17 15:10 164/84 04/27/17 14:55 163/89 04/27/17 14:40 153/73 04/27/17 14:25 157/77 04/27/17 14:10 145/84 04/27/17 13:55 151/78 04/27/17 13:40 146/76 04/27/17 13:25 154/84 04/27/17 13:10 164/89 04/27/17 12:55 97.3 F L 18 156/80 Intake and Output 04/27/17 04/28/17 04/28/17 23:59 07:59 15:59 Intake Total 340 / 340 220 / 220 320 / 320 Output Total 805 / 805 200 / 200 Balance -465 / -465 220 / 220 120 / 120 Intake: IV Fluids 100 / 100 100 / 100 Ancef 1,000 MG In 100 / 100 100 / 100 Dextrose 5% (Minibag+) 100 ML 100 ML @ 200 mls/ hr IVPB Q8HR [facility] Rx#: [id number] Oral 240 / 240 120 / 120 320 / 320 Output: Urine 805 / 805 200 / 200 Other: Meal Dinner Breakfast Percent of Meal Consumed 5% 100% Stool Size Large Small Stool Consistency liquid soft Stool Characteristics [place] Stool Color Brown # Bowel Movements 1 Weight 100.1 kg Blood Glucose* 202 212 Patient Weight 04/28/17 23:59 Weight 100.1 kg - General Appearance General appearance: Present: well-developed, well-nourished, appears started age EENT: Present: ATNC, PERRL, mucous membranes moist Neck: Present: supple Respiratory: Present: course breath sounds Cardiology: Present: edema (tense, erythematous 1+ pretibial pitting edema bilaterally), normal S1, normal S2 Dialysis Vascular Access: Venous Catheter (RIJ temporary HD catheter with dressing that was C/D/I and no longer ozzing.) Gastrointestinal: Present: normoactive bowel sounds, no tenderness, no guarding Integumentary: Present: erythema Neurologic: Present: no focal deficit, no asterixis, alert and oriented x3 Musculoskeletal: Present: no clubbing Psychiatric: Present: mood/affect appropriate, cooperative - Lab 04/28/17 04:30 04/28/17 04:30 Most recent lab results Calcium 9.1 mg/dL (8.6-10.8) 04/28/17 04:30 Phosphorus 4.1 mg/dL (2.3-4.7) 04/28/17 04:30 Urine Creatinine 62 mg/dL 04/26/17 Unknown Urine Sodium 56.0 mEq/L 04/26/17 Unknown Urine Total Protein 32 mg/dL (1-14) H 04/26/17 Unknown - VTE Documentation of Mechanical Device: Graduated compression elastic hosiery Consult Discharge Plan - Plan Referrals: Stuart Cespedes MD [Primary Care Provider] -
[2017-04-28] MEDS ORDERED: 0.9 % Sodium Chloride 250 ML IVC PRN (09:44)
--- NOTE | 2017-04-28 10:29 | Electrocardiograph Report ---
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
--- NOTE | 2017-04-28 11:40 | Venous Imaging Report ---
LE Venous Duplex Patient Name:Tomas Otero Order Number:[id number] Procedure Date:04/27/2017 Date:2Age:66 yrs Gender:Male Location:[facility] Room #: 2A24 Karate Black Belt:Theron Roth RDCS Referring MD:Pipe Lerner DO surveillance agent:Stuart Cespedes MD Reading MD:Dwight Carvajal MD Primary Indications:Swelling Secondary Indications: Risk Factors Yes/No Anticoagulants Yes Impressions: Normal bilateral lower extremity deep and superficial venous exam. Recommendations: After imaging the patient returned to their room. Critical findings reported to [place] in person by Theron Roth RDCS. Findings Venous Duplex Results: Right: Venous imaging of the lower extremity reveals full patency and normal vessel compressibility of the right distal iliac, right common femoral, right superficial femoral, right popliteal, right posterior tibial, right peroneal, right great saphenous and right lesser saphenous. Doppler signals in the evaluated veins were normal. Left: Venous imaging of the lower extremity reveals full patency and normal vessel compressibility of the left distal iliac, left common femoral, left superficial femoral, left popliteal, left posterior tibial, left peroneal, left great saphenous and left lesser saphenous. Doppler signals in the evaluated veins were normal. Prior Study: No prior study available for comparison. Lower Extremity Venous Duplex Side Vein Compress Spontaneous Flow Augment Diameter (cm) Depth (cm) Right Distal Iliac Normal Yes Phasic Yes Right Common Femoral Normal Yes Phasic Yes Right Superficial Femoral Normal Yes Phasic Yes Right Popliteal Normal Yes Phasic Yes Right Posterior Tibial Normal Yes Phasic Yes Right Peroneal Normal Yes Phasic Yes Right Great Saphenous Normal Yes Phasic Yes Right Lesser Saphenous Normal Yes Phasic Yes Left Distal Iliac Normal Yes Phasic Yes Left Common Femoral Normal Yes Phasic Yes Left Superficial Femoral Normal Yes Phasic Yes Left Popliteal Normal Yes Phasic Yes Left Posterior Tibial Normal Yes Phasic Yes Left Peroneal Normal Yes Phasic Yes Left Great Saphenous Normal Yes Phasic Yes Left Lesser Saphenous Normal Yes Phasic Yes Updated by Dwight Carvajal MD on 04/28/2017 11:33:32 AM electronically signed on 04/28/2017 11:33:46 AM with status of Final
--- NOTE | 2017-04-28 13:16 | Internal Med Progress Note ---
<[email or web address] goff - Last Filed: 04/28/17 13:13> Date of Encounter: 04/28/17 Time of Encounter: 10:00 - Assessment and plan (1) Renal failure (ARF), acute on chronic Current Visit: Yes Status: Acute Assessment and plan: - Presumed oliguric TRELL on CKD stage III. - BUN/creatinine of 29/2.48, continues to improve with daily dialysis - Nephrology following, appreciate recommendations - Urine Output yesterday, was previously oliguric. Tolerated his first dialysis session yesterday without complications - We will receive dialysis again today for round 3 of 3, nephrology to determine if long-term dialysis as needed - Electrolyte imbalances improving - Due to inability to urinate with post void volume of 500 mL per nursing notes , fully catheter was attempted to be placed but was unable to. Urology was consulted for placement of Concepcion catheter this afternoon. Qualifiers: Acute renal failure type: unspecified Chronic kidney disease stage: stage 3 (moderate) Qualified Code(s): N17.9 - Acute kidney failure, unspecified; N18.3 - Chronic kidney disease, stage 3 (moderate) (2) Acute exacerbation of congestive heart failure Current Visit: Yes Status: Acute Assessment and plan: - BNP of 2631 emergency Department Fluid restriction, we will continue to hold diuresis and monitor for increased urine output. Fluid will be taken off in dialysis Plan for hemodialysis this afternoon Asymptomatic at this time is tolerating 3 L of oxygen without complaints and speaking in full sentences. states he is able to do himself without become short of breath Qualifiers: Congestive heart failure type: diastolic Qualified Code(s): I50.33 - Acute on chronic diastolic (congestive) heart failure (3) Afib Current Visit: Yes Status: Acute Assessment and plan: Rate controlled at 67 bpm on carvedilol Temporary dialysis catheter placed successfully in the presence of INR of 3.2 Friday We will continue holding Coumadin for possible permacath placements later this week, INR this morning of 2.0 Qualifiers: Atrial fibrillation type: paroxysmal Qualified Code(s): I48.0 - Paroxysmal atrial fibrillation (4) Sepsis affecting skin Current Visit: Yes Status: Acute Assessment and plan: - Reported sepsis from [facility] possibly secondary to bilateral lower extremity cellulitis - He reports a significant history of chronic lower extremity edema and erythema and flaking - We will discontinue Ancef at this time due to unlikely sepsis secondary to cellulitis. More likely chronic venous stasis - Afebrile, vital signs the normal limits, no white count (5) Type 2 diabetes mellitus Current Visit: Yes Status: Acute Assessment and plan: Sugar of 191 most recently. A1c of 9.7 Sliding insulin scale Qualifiers: Diabetes mellitus complication status: with kidney complications Diabetes mellitus complication detail: with chronic kidney disease Diabetes mellitus residential insulin use: without ferry terminal supervisor use Chronic kidney disease stage: stage 3 (moderate) Qualified Code(s): E11.22 - Type 2 diabetes mellitus with diabetic chronic kidney disease; N18.3 - Chronic kidney disease, stage 3 ( moderate) (6) Hyperkalemia Current Visit: Yes Status: Acute Assessment and plan: Resolved Likely secondary to acute renal failure Most recent of 4.0, continues to improve with dialysis We will continue to trend after dialysis this afternoon (7) Hyponatremia Current Visit: Yes Status: Acute Assessment and plan: Resolved Nephrology following, appreciate recommendations Likely hypervolemic hyponatremia secondary to anasarca Improved from yesterday, most recently 136 Uric acid of 7.9, unlikely SIADH etiology Will diuresis tolerated, fluid restriction, hemodialysis (8) DVT prophylaxis Current Visit: Yes Status: Acute Assessment and plan: Holding Coumadin for possible permacath placement Will put in SCDs - Time Spent With Patient 25 - 35 minutes - Subjective Interval history: Patient was seen and examined at bedside this morning. He states he tolerated his dialysis session very well yesterday and has no current complaints. Overall , he is feeling much better than when he was admitted. He is in agreement with all current plans. He does state he was able to urinate 200 mL yesterday, however he was unable to urinate this morning. He does admit to some suprapubic tenderness but otherwise denies any symptoms. - Constitutional Vitals: Temp Pulse Resp BP Pulse Ox 98 F 64 16 175/51 96 04/28/17 10:44 04/28/17 10:44 04/28/17 10:44 04/28/17 10:44 04/28/17 10:44 General appearance: Present: A&O X 3, pleasant, no acute distress Exam: Gen.: Vitals noted. No acute distress. AAOx3 HEENT: PERRL/EOMI, oropharynx clear, Normocephalic, atraumatic Neck: Supple. No adenopathy. Cardiac: Irregularly irregular rhythm, no murmur, +S1/S2 Pulmonary: CTA bilaterally, no wheezes, rales or rhonchi, equal chest expansion Abdomen: Mildly tender diffusely, most pronounced in suprapubic region. soft, nontender, BS noted, no guarding Back: Nontender throughout. MSK: ROM intact, no joint swelling noted Extremities: Chronic bilateral lower extremity erythema and swelling with flaking of skin. no BLE edema, nontender calf, no cyanosis or clubbing Neuro: A&Ox3, moves all extremities, no focal deficits Psych: Appropriate mood and behavior Internal Medicine: Result - Labs CBC & Chem 7: 04/28/17 04:30 04/28/17 04:30 Labs: Short CBC 04/28/17 Range/Units 04:30 WBC 8.7 (4.3-11.1) K/mcL Hgb 9.7 L (12.9-16.9) g/dL Hct 33.0 L (37.5-50.1) % Plt Count 137 L (140-400) K/mcL BMP 04/28/17 04:30 Sodium 136 Potassium 4.0 Chloride 99 Carbon Dioxide 27 BUN 29 H D Creatinine 2.48 H Glucose 230 H Calcium 9.1 - ABG Interpretation ABG results: PT/INR, D-dimer PT 21.5 Seconds (9.4-12.1) H 04/28/17 04:30 - VTE Documentation of Mechanical Device: Graduated compression elastic hosiery Consult Discharge Plan - Plan Referrals: Stuart Cespedes MD [Primary Care Provider] - <Pipe Lerner - Last Filed: 04/28/17 16:40> Date of Encounter: 04/28/17 - Assessment and plan (1) Acute respiratory failure with hypoxia Current Visit: Yes Status: Acute (2) Acute exacerbation of congestive heart failure Current Visit: Yes Status: Acute Qualifiers: Congestive heart failure type: diastolic Qualified Code(s): I50.33 - Acute on chronic diastolic (congestive) heart failure (3) Afib Current Visit: Yes Status: Acute Qualifiers: Atrial fibrillation type: paroxysmal Qualified Code(s): I48.0 - Paroxysmal atrial fibrillation (4) Renal failure (ARF), acute on chronic Current Visit: Yes Status: Suspected Qualifiers: Acute renal failure type: with acute tubular necrosis Chronic kidney disease stage: stage 3 (moderate) Qualified Code(s): N17.0 - Acute kidney failure with tubular necrosis; N18.3 - Chronic kidney disease, stage 3 (moderate ) (5) Hyperkalemia Current Visit: Yes Status: Resolved (6) Type 2 diabetes mellitus Current Visit: Yes Status: Acute Qualifiers: Diabetes mellitus complication status: with kidney complications Diabetes mellitus complication detail: with chronic kidney disease Diabetes mellitus residential insulin use: without residential use Chronic kidney disease stage: stage 3 (moderate) Qualified Code(s): E11.22 - Type 2 diabetes mellitus with diabetic chronic kidney disease; N18.3 - Chronic kidney disease, stage 3 ( moderate) (7) Venous stasis of both lower extremities Current Visit: Yes Status: Chronic - Constitutional Vitals: Temp Pulse Resp BP Pulse Ox 97.7 F 67 16 138/70 97 04/28/17 15:48 04/28/17 15:48 04/28/17 15:48 04/28/17 15:48 04/28/17 15:48 Internal Medicine: Result - Labs CBC & Chem 7: 04/28/17 04:30 04/28/17 04:30 Labs: Short CBC 04/28/17 Range/Units 04:30 WBC 8.7 (4.3-11.1) K/mcL Hgb 9.7 L (12.9-16.9) g/dL Hct 33.0 L (37.5-50.1) % Plt Count 137 L (140-400) K/mcL BMP 04/28/17 04:30 Sodium 136 Potassium 4.0 Chloride 99 Carbon Dioxide 27 BUN 29 H D Creatinine 2.48 H Glucose 230 H Calcium 9.1 - ABG Interpretation ABG results: PT/INR, D-dimer PT 21.5 Seconds (9.4-12.1) H 04/28/17 04:30 - Attending Attestation I examined this patient and my medical decision-making was reviewed with the Resident Physician on 04/28/17. I agree with the documented findings, disposition and treatment plan as described except to the extent set forth below. Mr Otero is currently admitted for acute on chronic renal failure. He remains moderate to high risk due to potential for worsening renal status. Mr Otero has had dialysis and is doing somewhat better. Coumadin on hold for any potential catheter placement. No fever or chills. Retaining urine so concepcion to be placed today. Exam Alert. Comfortable Heart reg No wheeze Abd soft I/P 1. TRELL 2. CKD further diagnoses and plan as above. Hold abx - legs most likely venous stasis.
[2017-04-28] MEDS ORDERED: *HR* Heparin 10,000 UNIT/10 ML VIAL IV PRN (13:36)
--- NOTE | 2017-04-28 17:44 | Urology Procedure Note ---
Date of Encounter: 04/28/17 Time of Encounter: 17:42 Procedures:Urology - Catheter Insertion (Urinary) Bladder Scan/Ultrasound used before catheterization: Yes (400) Estimated amount of urin (mLs): 500 Preparation: Povidone-Iodine Type of catheter inserted: 2 way Catheter Kinyarwanda Size: 16 Topical anesthesia used: Yes Results: successfully catheterized-immediate flow Urine Appearance: Clear Patient tolerated procedure: well Complications: none Additional comments: pt had phimosis but i was able to retract the foreskin enough to visualized meatus and place urojet. 16 nigerien cath placed after urojet without difficulty. OK to remove cath when primary service no longer needs catheter.
[2017-04-28 21:59] LABS: Hepatitis B Surface Antibody 0.62 mIU/mL
[2017-04-29 04:57] LABS: INR 1.8; Prothrombin Time 19.2 Seconds (9.4-12.1)
[2017-04-29 05:08] LABS: Basophils % 0.4 %; Platelet Count 136 K/mcL (140-400); Red Cell Distribution Width 19.8 % (11.5-14.5)
[2017-04-29 05:09] LABS: Eosinophils # 0.5 K/mcL (0.0-0.6); Hemoglobin 8.8 g/dL (12.9-16.9); Immature Granulocytes % 0.3 % (0-4); Lymphocytes # 1.3 K/mcL (0.6-4.6); Lymphocytes % 12.8 %; Mean Corpuscular HGB Conc 29.3 g/dL (31.6-35.5); Mean Corpuscular Volume 78.3 fL (83.0-100.0); Mean Platelet Volume 11.7 fL (9.4-12.4); Monocytes # 1.1 K/mcL (0.0-1.3); Monocytes % 10.4 %; Neutrophils # 7.5 K/mcL (1.6-8.9); Red Blood Count 3.83 M/mcL (4.19-5.50); Segmented Neutrophils % 71.1 %
[2017-04-29 05:27] LABS: Platelet Estimate Normal (Normal)
[2017-04-29 05:28] LABS: Calcium 8.8 mg/dL (8.6-10.8); Phosphorous 3.6 mg/dL (2.3-4.7); Potassium 4.1 mEq/L (3.5-4.5)
[2017-04-29] MEDS: Insulin LISPRO 300 UNITS/3 ML VIAL SQ SCH ×4 (07:54→20:53)
[2017-04-29] MEDS: Aspirin 81 MG TAB.CHEW PO SCH (07:55)
[2017-04-29] MEDS: cloNIDine HCl 0.1 MG TABLET PO SCH ×3 (07:55→20:53)
[2017-04-29] MEDS: Isosorbide MONOnitrate (24 HR) 60 MG TAB.ER.24H PO SCH (07:55)
[2017-04-29] MEDS: amLODIPine 5 MG TABLET PO SCH (07:55)
[2017-04-29] MEDS: Magnesium Oxide 400 MG TABLET PO SCH (07:55)
[2017-04-29] MEDS: Gabapentin 100 MG CAPSULE PO SCH ×3 (07:55→20:53)
--- NOTE | 2017-04-29 08:02 | Nephrology Progress Note ---
Date of Encounter: 04/29/17 Time of Encounter: 07:45 - Assessment and Plan (1) TRELL (acute kidney injury) Current Visit: Yes Status: Acute SCr improved and UOP has improved too. I suspect the improved SCr is not just from dialysis but a helpful contribution from improving renal function. Hold HD today. If SCr improving tomorrow and UOP remains strong, then would plan to remove the temporary HD catheter. Gross hematuria, Appreciate Urology. Should have the concepcion flushed every few hours to avoid clotting. Most likely this hematuria is from concepcion insertion itself since the pt takes Plavix and Coumadin. If he continues to improve by tomorrow, then would be reasonable to trial removal of the concepcion catheter. Edema/chronic lymphedema: Erythema is stable, and the pt's said that he has had LE erythema for "quite awhile" (hence prior to admission). Will reintroduce a lower dose of lasix since he's still attempting to have renal recovery. I would recommend close weight, I/Os and SCr measures to help adjust the dose of the lasix. Holding metolazone as well since he's had several liters removed with dialysis the last three days. Left knee pain, acute: consider checking uric acid to work up gout vs pseudogout. Consider checking Xray of knee, if indicated. Workup as per primary. (2) CKD (chronic kidney disease), stage III Current Visit: Yes Status: Acute B/l CKD stage III (3) Oligouria Current Visit: Yes Status: Acute Continue strict I/Os to help assess if he has any signs of renal recovery. See above (4) Acute exacerbation of congestive heart failure Current Visit: Yes Status: Acute As per primary Qualifiers: Congestive heart failure type: diastolic Qualified Code(s): I50.33 - Acute on chronic diastolic (congestive) heart failure (5) Anticoagulated on Coumadin Current Visit: Yes Status: Acute See above (6) Hyperkalemia Current Visit: Yes Status: Resolved Low K+ / renal diet. Due to his TRELL on CKD stage III. (7) Hyponatremia Current Visit: Yes Status: Acute Hypervolemic hyponatremia. Trending better. (8) Gross hematuria Current Visit: Yes Status: Acute See above (9) Left knee pain Current Visit: Yes Status: Acute See above. As per primary. Qualifiers: Chronicity: acute Qualified Code(s): M25.562 - Pain in left knee Subjective Principal diagnosis: TRELL, Anasarca Interval history: Pt was s/e this AM. He reported feeling better without N/V or uremic symptoms. He affirmed having slept better last night and feels that his edema is improving. He voiced appreciation for the floor nurses and the dialysis nurses, who have "all been excellent," he said. Objective - Vital Signs Vital signs: Vital Signs Temp Pulse Resp BP Pulse Ox 04/29/17 07:20 97.9 F 61 16 149/73 99 04/29/17 03:18 98.7 F 57 18 175/74 98 04/29/17 00:41 99.0 F 57 19 143/73 95 04/28/17 19:33 98.0 F 61 17 157/73 96 04/28/17 15:48 97.7 F 67 16 138/70 97 04/28/17 13:45 97.9 F 17 141/73 04/28/17 13:40 129/74 04/28/17 13:10 136/82 04/28/17 12:40 133/82 04/28/17 12:10 159/77 04/28/17 11:40 155/75 04/28/17 11:10 158/77 04/28/17 10:44 98 F 64 16 175/51 96 04/28/17 10:40 97.9 F 17 163/78 Intake and Output 04/28/17 04/28/17 04/29/17 15:59 23:59 07:59 Intake Total 1160 / 1160 630 / 630 360 / 360 Output Total 4220 / 4220 950 / 950 Balance -3060 / -3060 -320 / -320 360 / 360 Intake: Oral 560 / 560 630 / 630 360 / 360 Intake, Rinseback and 600 / 600 Flushes Output: Urine 620 / 620 400 / 400 Total Dialysis (HD) 3600 / 3600 Output Straight Cath 550 / 550 Other: Meal Lunch Dinner Percent of Meal Consumed 100% 0% Stool Size Moderate Stool Consistency loose Stool Color Brown # Bowel Movements 1 Weight 99.8 kg Blood Glucose* 210 259 248 Hemodialysis Net Fluid 3000 Removed (mL) Patient Weight 04/29/17 23:59 Weight 99.8 kg - General Appearance General appearance: Present: well-developed, well-nourished, appears started age EENT: Present: ATNC, PERRL, mucous membranes moist Neck: Present: supple Respiratory: Present: rhonchi (fine basilar rhonchi) Cardiology: Present: no murmurs, edema (slightly less tense b/l pretibial edema) , regular rate, regular rhythm, normal S1, normal S2 Gastrointestinal: Present: normoactive bowel sounds, no tenderness, no guarding Integumentary: Present: erythema Neurologic: Present: no focal deficit, no asterixis Musculoskeletal: Present: no cyanosis, no clubbing Additional Comments: Left knee slight erythema, new. Psychiatric: Present: mood/affect appropriate, cooperative - Lab 04/29/17 04:40 04/29/17 04:40 Most recent lab results Calcium 8.8 mg/dL (8.6-10.8) 04/29/17 04:40 Phosphorus 3.6 mg/dL (2.3-4.7) 04/29/17 04:40 Urine Creatinine 62 mg/dL 04/26/17 Unknown Urine Sodium 56.0 mEq/L 04/26/17 Unknown Urine Total Protein 32 mg/dL (1-14) H 04/26/17 Unknown - VTE Documentation of Mechanical Device: Graduated compression elastic hosiery Consult Discharge Plan - Plan Referrals: Stuart Cespedes MD [Primary Care Provider] -
[2017-04-29] MEDS: Acetaminophen 325 MG TABLET PO PRN ×2 (08:21→17:19)
[2017-04-29] MEDS: Furosemide 20 MG TABLET PO SCH ×2 (10:17→15:57)
--- NOTE | 2017-04-29 13:09 | Internal Med Progress Note ---
<DanielTanvir goff - Last Filed: 04/29/17 15:59> Date of Encounter: 04/29/17 Time of Encounter: 16:06 - Assessment and plan (1) Renal failure (ARF), acute on chronic Current Visit: Yes Status: Suspected Assessment and plan: -TRELL on CKD stage III. - BUN/creatinine of 21/2.04, continues to improve with daily dialysis. - Nephrology following, appreciate recommendations - Urine Output in [place] catheter. Tolerating during his dialysis sessions well without complaints and good improvement of symptoms and lab values -received dialysis terms 3 of 3 today, nephrology to determine if long-term dialysis is necessary after reviewing lab results tomorrow - Electrolyte imbalances improving Resolved - continue with Penning[place] catheter until patient is able to excrete urine. Pennington catheter in place and he has a documented urine output of 1.5 L over the past 24 hours -We will attempt removal of catheter tomorrow and determine if he is able to urinate Qualifiers: Acute renal failure type: with acute tubular necrosis Chronic kidney disease stage: stage 3 (moderate) Qualified Code(s): N17.0 - Acute kidney failure with tubular necrosis; N18.3 - Chronic kidney disease, stage 3 (moderate ) (2) Acute exacerbation of congestive heart failure Current Visit: Yes Status: Acute Assessment and plan: -Symptoms resolved, not retaining fluid at this time. Euvolemic BNP of 2631 emergency Department Fluid restriction, we will continue to hold diuresis and monitor for increased urine output. Fluid will be taken off in dialysis Asymptomatic at this time is tolerating room air Qualifiers: Congestive heart failure type: diastolic Qualified Code(s): I50.33 - Acute on chronic diastolic (congestive) heart failure (3) Afib Current Visit: Yes Status: Acute Assessment and plan: Rate controlled at 65 bpm on carvedilol Temporary dialysis catheter placed successfully in the presence of INR of 3.2 Friday We will continue holding Coumadin for possible permacath placements tomorrow, current INR of 1.8 We will resume Coumadin on discharge Qualifiers: Atrial fibrillation type: paroxysmal Qualified Code(s): I48.0 - Paroxysmal atrial fibrillation (4) Type 2 diabetes mellitus Current Visit: Yes Status: Acute Assessment and plan: Sugar of 236 most recently. A1c of 9.7 Sliding insulin scale instruction of more rigid monitoring of blood sugars upon discharge Qualifiers: Diabetes mellitus complication status: with kidney complications Diabetes mellitus complication detail: with chronic kidney disease Diabetes mellitus terminal block assembler insulin use: without mcc use Chronic kidney disease stage: stage 3 (moderate) Qualified Code(s): E11.22 - Type 2 diabetes mellitus with diabetic chronic kidney disease; N18.3 - Chronic kidney disease, stage 3 ( moderate) (5) Hyperkalemia Current Visit: Yes Status: Resolved Assessment and plan: Resolved Likely secondary to acute renal failure Most recent of 4.1, continues to improve with dialysis Monitor tomorrow for future need of dialysis, defer to nephrology (6) Hyponatremia Current Visit: Yes Status: Acute Assessment and plan: Resolved Nephrology following, appreciate recommendations Likely hypervolemic hyponatremia secondary to anasarca Improved from yesterday, most recently 136 Uric acid of 7.9, unlikely SIADH etiology Will diuresis tolerated, fluid restriction, hemodialysis (7) DVT prophylaxis Current Visit: Yes Status: Acute Assessment and plan: Holding Coumadin for possible permacath placement Will put in SCDs - Time Spent With Patient 25 - 35 minutes - Subjective Interval history: Patient was seen and examined at bedside this morning. He states he has been tolerating his dialysis session very well yesterday and has no current complaints. Overall, he is feeling much better than when he was admitted. He is in agreement with all current plans. He states he has been able to make urine, however he is still unable to urinate this time. Pennington catheter in place with 100 mL of yellow urine. - Constitutional Vitals: Temp Pulse Resp BP Pulse Ox 98.2 F 49 17 116/63 97 04/29/17 10:55 04/29/17 10:55 04/29/17 10:55 04/29/17 10:55 04/29/17 10:55 General appearance: Present: A&O X 3, pleasant, no acute distress Exam: Gen.: Vitals noted. No acute distress. AAOx3 HEENT: PERRL/EOMI, oropharynx clear, Normocephalic, atraumatic Neck: Supple. No adenopathy. Cardiac: RRR, no murmur, +S1/S2 Pulmonary: CTA bilaterally, no wheezes, rales or rhonchi, equal chest expansion Abdomen: soft, nontender, BS noted, no guarding Back: Nontender throughout. MSK: ROM intact, no joint swelling noted Extremities: Lateral lower extremity erythema, swelling, flaking of skin. Patient states this is chronic. New onset left knee tenderness to palpation over the patella with small amount of deposition. Neuro: A&Ox3, moves all extremities, no focal deficits Psych: Appropriate mood and behavior Internal Medicine: Result - Labs CBC & Chem 7: 04/29/17 04:40 04/29/17 04:40 Labs: Short CBC 04/29/17 Range/Units 04:40 WBC 10.5 (4.3-11.1) K/mcL Hgb 8.8 L (12.9-16.9) g/dL Hct 30.0 L (37.5-50.1) % Plt Count 136 L (140-400) K/mcL Neutrophils # 7.5 (1.6-8.9) K/mcL BMP 04/29/17 04:40 Sodium 137 Potassium 4.1 Chloride 99 Carbon Dioxide 27 BUN 21 Creatinine 2.04 H Glucose 236 H Calcium 8.8 - ABG Interpretation ABG results: PT/INR, D-dimer PT 19.2 Seconds (9.4-12.1) H 04/29/17 04:40 - VTE Documentation of Mechanical Device: Graduated compression elastic hosiery Consult Discharge Plan - Plan Referrals: Stuart Cespedes MD [Primary Care Provider] - 05/06/17 1:30 pm (Please follow up as schedule...) <Trell Lane P - Last Filed: 04/29/17 17:53> Date of Encounter: 04/29/17 - Constitutional Vitals: Temp Pulse Resp BP Pulse Ox 98.0 F 65 16 154/71 93 04/29/17 15:27 04/29/17 15:27 04/29/17 15:27 04/29/17 15:27 04/29/17 15:27 Internal Medicine: Result - Labs CBC & Chem 7: 04/29/17 04:40 04/29/17 04:40 Labs: Short CBC 04/29/17 Range/Units 04:40 WBC 10.5 (4.3-11.1) K/mcL Hgb 8.8 L (12.9-16.9) g/dL Hct 30.0 L (37.5-50.1) % Plt Count 136 L (140-400) K/mcL Neutrophils # 7.5 (1.6-8.9) K/mcL BMP 04/29/17 04:40 Sodium 137 Potassium 4.1 Chloride 99 Carbon Dioxide 27 BUN 21 Creatinine 2.04 H Glucose 236 H Calcium 8.8 - ABG Interpretation ABG results: PT/INR, D-dimer PT 19.2 Seconds (9.4-12.1) H 04/29/17 04:40 - Impressions Impressions Knee X-Ray 04/29/17 10:19 IMPRESSION: No acute abnormality. Mild patellofemoral degenerative change. D/ / 04/29/2017 15:16:41 Tj Muse MD / [facility] Interpreting Provider: Tj Muse MD - Attending Attestation I examined this patient and my medical decision-making was reviewed with the Resident Physician. I agree with the documented findings, disposition and treatment plan as described except to the extent set forth below.
[2017-04-30 05:31] LABS: Alpha 2 Globulin (PEP) 0.83 g/dL (0.48-1.05); Beta Globulin (PEP) 0.86 g/dL (0.48-1.10)
[2017-04-30 05:49] LABS: Hemoglobin 8.4 g/dL (12.9-16.9)
[2017-04-30 05:51] LABS: Immature Platelets 12.1 % (1.1-6.1); Mean Corpuscular Hemoglobin 22.3 pg (28.0-33.3); Mean Corpuscular Volume 76.9 fL (83.0-100.0); Platelet Count 145 K/mcL (140-400); Red Blood Count 3.77 M/mcL (4.19-5.50); Red Cell Distribution Width 19.8 % (11.5-14.5)
[2017-04-30 05:52] LABS: INR 1.6; Prothrombin Time 17.5 Seconds (9.4-12.1)
[2017-04-30 05:59] LABS: Calcium 9.1 mg/dL (8.6-10.8); Potassium 4.2 mEq/L (3.5-4.5)
[2017-04-30 07:38] LABS: IFE Reflexed NOT DONE
[2017-04-30] MEDS: Magnesium Oxide 400 MG TABLET PO SCH (08:41)
[2017-04-30] MEDS: Gabapentin 100 MG CAPSULE PO SCH ×3 (08:41→21:11)
[2017-04-30] MEDS: Aspirin 81 MG TAB.CHEW PO SCH (08:41)
[2017-04-30] MEDS: Insulin LISPRO 300 UNITS/3 ML VIAL SQ SCH ×4 (08:41→21:13)
--- NOTE | 2017-04-30 09:34 | Internal Med Progress Note ---
<Aruna Mccormackew - Last Filed: 04/30/17 11:16> Date of Encounter: 04/30/17 Time of Encounter: 09:34 - Assessment and plan (1) Renal failure (ARF), acute on chronic Current Visit: Yes Status: Suspected Assessment and plan: -TRELL on CKD stage III. - BUN/creatinine of 29/2.33, much improved from admission, however mildly worse than yesterday, 21/2.04 - Nephrology following, appreciate recommendations - Pennington catheter removed by nephrology, will monitor for urine output - Given mild decrease in kidney function, nephrology would like to monitor for an additional day and determine if long-term dialysis is necessary. - Continue fluid resections, small Lasix dose - Continue to hold Coumadin and Plavix for possible permanent catheter placement Qualifiers: Acute renal failure type: with acute tubular necrosis Chronic kidney disease stage: stage 3 (moderate) Qualified Code(s): N17.0 - Acute kidney failure with tubular necrosis; N18.3 - Chronic kidney disease, stage 3 (moderate ) (2) Acute exacerbation of congestive heart failure Current Visit: Yes Status: Acute Assessment and plan: -Resolved. Euvolemic, asymptomatic BNP of 2631 emergency Department Fluid restriction, we will continue small dosage of Lasix Fluid has been taken off in dialysis. Patient to work with physical therapy today, reports being able to walk with walker yesterday down the [place] Qualifiers: Congestive heart failure type: diastolic Qualified Code(s): I50.33 - Acute on chronic diastolic (congestive) heart failure (3) Afib Current Visit: Yes Status: Acute Assessment and plan: Rate controlled at 65 bpm on carvedilol Temporary dialysis catheter placed successfully in the presence of INR of 3.2 Friday We will continue holding Coumadin and Plavix for possible permacath placements tomorrow, current INR of 1.6 We will resume Coumadin on discharge Qualifiers: Atrial fibrillation type: paroxysmal Qualified Code(s): I48.0 - Paroxysmal atrial fibrillation (4) Type 2 diabetes mellitus Current Visit: Yes Status: Acute Assessment and plan: Sugar of 163 most recently. A1c of 9.7 Sliding insulin scale instruction of more rigid monitoring of blood sugars upon discharge Qualifiers: Diabetes mellitus complication status: with kidney complications Diabetes mellitus complication detail: with chronic kidney disease Diabetes mellitus vermin exterminator insulin use: without long-term use Chronic kidney disease stage: stage 3 (moderate) Qualified Code(s): E11.22 - Type 2 diabetes mellitus with diabetic chronic kidney disease; N18.3 - Chronic kidney disease, stage 3 ( moderate) (5) Hyperkalemia Current Visit: Yes Status: Resolved Assessment and plan: Resolved with dialysis Likely secondary to acute renal failure Most recent of 4.2 Monitor tomorrow for future need of dialysis, defer to nephrology (6) Hyponatremia Current Visit: Yes Status: Acute Assessment and plan: Resolved Nephrology following, appreciate recommendations Likely hypervolemic hyponatremia secondary to anasarca most recently 134 Uric acid of 7.9, unlikely SIADH etiology Will diuresis as tolerated, fluid restriction, hemodialysis (7) Knee pain, acute Current Visit: Yes Status: Acute Assessment and plan: X-ray of knee was grossly normal yesterday - Patient reports pain worse with motion - No evidence of warmth, swelling of knee joint - Possible etiologies include gout versus tendinopathy versus bursitis versus patellofemoral pain - We will treat symptomatically for time being, uric acid level, further management as outpatient. Qualifiers: Laterality: left Qualified Code(s): M25.562 - Pain in left knee (8) DVT prophylaxis Current Visit: Yes Status: Acute Assessment and plan: Holding Coumadin for possible permacath placement Will put in SCDs - Time Spent With Patient 25 - 35 minutes - Subjective Interval history: Patient was seen and examined at bedside this morning. He states he is continuing to feel much better than admission. He is very relieved that his [place] catheter has been removed, however has not made urine as of yet. He denies any symptoms of shortness of breath, chest pain, fevers, chills. He does have a new complaint of left knee pain exacerbated with movement but states it does not bother him that much. He also states that he has been having some difficulty sleeping at night. - Constitutional Vitals: Temp Pulse Resp BP Pulse Ox 98.8 F 65 18 162/77 97 04/30/17 07:40 04/30/17 07:40 04/30/17 07:40 04/30/17 07:40 04/30/17 07:40 General appearance: Present: A&O X 3, pleasant, no acute distress Exam: Gen.: Vitals noted. No acute distress. AAOx3 HEENT: PERRL/EOMI, oropharynx clear, Normocephalic, atraumatic Neck: Supple. No adenopathy. Right IJ temporary dialysis catheter in place without using Cardiac: Irregularly irregular, no murmur, +S1/S2 Pulmonary: CTA bilaterally, no wheezes, rales or rhonchi, equal chest expansion Abdomen: soft, nontender, BS noted, no guarding Back: Nontender throughout. MSK: ROM intact, no joint swelling noted Extremities: Bilateral lower extremity erythema, edema chronic. Left knee tender to palpation over anterior surface of patella. No swelling noted. Small erythematous deposition lesion, raised. no cyanosis or clubbing Neuro: A&Ox3, moves all extremities, no focal deficits Psych: Appropriate mood and behavior Internal Medicine: Result - Labs CBC & Chem 7: 04/30/17 04:30 04/30/17 04:30 Labs: Short CBC 04/30/17 Range/Units 04:30 WBC 10.4 (4.3-11.1) K/mcL Hgb 8.4 L (12.9-16.9) g/dL Hct 29.0 L (37.5-50.1) % Plt Count 145 (140-400) K/mcL BMP 04/30/17 04:30 Sodium 134 L Potassium 4.2 Chloride 99 Carbon Dioxide 26 BUN 29 H Creatinine 2.33 H Glucose 163 H Calcium 9.1 - ABG Interpretation ABG results: PT/INR, D-dimer PT 17.5 Seconds (9.4-12.1) H 04/30/17 04:30 - Impressions Impressions Knee X-Ray 04/29/17 10:19 IMPRESSION: No acute abnormality. Mild patellofemoral degenerative change. D/ / 04/29/2017 15:16:41 Tj Muse MD / [facility] Interpreting Provider: Tj Muse MD - VTE Documentation of Mechanical Device: Graduated compression elastic hosiery Consult Discharge Plan - Plan Referrals: Stuart Cespedes MD [Primary Care Provider] - 05/06/17 1:30 pm (Please follow up as schedule...) <Trell Lane P - Last Filed: 04/30/17 17:51> Date of Encounter: 04/30/17 - Constitutional Vitals: Temp Pulse Resp BP Pulse Ox 97.5 F L 69 18 158/74 93 04/30/17 16:32 04/30/17 16:32 04/30/17 16:32 04/30/17 16:32 04/30/17 16:32 Internal Medicine: Result - Labs CBC & Chem 7: 04/30/17 04:30 04/30/17 04:30 Labs: Short CBC 04/30/17 Range/Units 04:30 WBC 10.4 (4.3-11.1) K/mcL Hgb 8.4 L (12.9-16.9) g/dL Hct 29.0 L (37.5-50.1) % Plt Count 145 (140-400) K/mcL BMP 04/30/17 04:30 Sodium 134 L Potassium 4.2 Chloride 99 Carbon Dioxide 26 BUN 29 H Creatinine 2.33 H Glucose 163 H Calcium 9.1 - ABG Interpretation ABG results: PT/INR, D-dimer PT 17.5 Seconds (9.4-12.1) H 04/30/17 04:30 - Impressions Impressions Knee X-Ray 04/29/17 10:19 IMPRESSION: No acute abnormality. Mild patellofemoral degenerative change. D/ / 04/29/2017 15:16:41 Tj Muse MD / [facility] Interpreting Provider: Tj Muse MD - Attending Attestation I examined this patient and my medical decision-making was reviewed with the Resident Physician. I agree with the documented findings, disposition and treatment plan as described except to the extent set forth below. Nephrology/urology recommendations appreciated.
[2017-04-30] MEDS: cloNIDine HCl 0.1 MG TABLET PO SCH ×3 (09:57→21:11)
[2017-04-30] MEDS: amLODIPine 5 MG TABLET PO SCH (09:57)
[2017-04-30] MEDS: Furosemide 20 MG TABLET PO SCH ×2 (09:57→17:35)
[2017-04-30] MEDS: Isosorbide MONOnitrate (24 HR) 60 MG TAB.ER.24H PO SCH (09:57)
--- NOTE | 2017-04-30 10:58 | Nephrology Progress Note ---
Date of Encounter: 04/30/17 Time of Encounter: 09:25 - Assessment and Plan (1) TRELL (acute kidney injury) Current Visit: Yes Status: Acute Bump in SCr. Recommend not discharging or d/c the temporary HD catheter today. Rec monitoring renal function anther 24hr. Would descalate today with d/c of concepcion and to check bladder scans if needed after removal of the concepcion. Continue lasix. Rec Lymphedema evaluation; I think PT performs this here and as an outpatient. Will defer sleep and left knee pain to primary Continue lasix at the present dosing Cont to follow a renal protective strategy (2) CKD (chronic kidney disease), stage III Current Visit: Yes Status: Acute B/l CKD stage III (3) Oligouria Current Visit: Yes Status: Acute Continue strict I/Os to help assess if he has any signs of renal recovery. See above (4) Acute exacerbation of congestive heart failure Current Visit: Yes Status: Acute As per primary Qualifiers: Congestive heart failure type: diastolic Qualified Code(s): I50.33 - Acute on chronic diastolic (congestive) heart failure (5) Anticoagulated on Coumadin Current Visit: Yes Status: Acute See above (6) Hyperkalemia Current Visit: Yes Status: Resolved Low K+ / renal diet. Due to his TRELL on CKD stage III. (7) Hyponatremia Current Visit: Yes Status: Acute Hypervolemic hyponatremia. Trending better. (8) Gross hematuria Current Visit: Yes Status: Acute See above (9) Left knee pain Current Visit: Yes Status: Acute See above. As per primary. Qualifiers: Chronicity: acute Qualified Code(s): M25.562 - Pain in left knee Subjective Principal diagnosis: TRELL, Anasarca Interval history: Pt was s/e this AM. He reported feeling better without N/V or uremic symptoms. Restless night of sleep Objective - Vital Signs Vital signs: Vital Signs Temp Pulse Resp BP Pulse Ox 04/30/17 07:40 98.8 F 65 18 162/77 97 04/30/17 03:20 99.8 F H 71 17 161/82 04/30/17 00:17 99.3 F 71 18 154/73 87 04/29/17 20:00 98.7 F 71 17 165/82 90 04/29/17 15:27 98.0 F 65 16 154/71 93 Intake and Output 04/29/17 04/30/17 04/30/17 23:59 07:59 15:59 Intake Total 120 / 120 Output Total 550 / 550 Balance -430 / -430 Intake: Oral 120 / 120 Output: Catheter 550 / 550 Other: Meal Dinner Breakfast Percent of Meal Consumed 75% 95% Stool Size Copious Stool Consistency soft Stool Characteristics Pasty Stool Color Brown Weight 89.8 kg Blood Glucose* 266 169 Patient Weight 04/30/17 23:59 Weight 89.8 kg - General Appearance Exam: General appearance: Present: well-developed, well-nourished, appears started age EENT: Present: ATNC, PERRL, mucous membranes moist Neck: Present: supple Respiratory: Present: rhonchi (fine basilar rhonchi) Cardiology: Present: no murmurs, edema (slightly less tense b/l pretibial edema) , regular rate, regular rhythm, normal S1, normal S2 Gastrointestinal: Present: normoactive bowel sounds, no tenderness, no guarding Integumentary: Present: erythema Neurologic: Present: no focal deficit, no asterixis Musculoskeletal: Present: no cyanosis, no clubbing Additional Comments: Left knee slight erythema, new. Psychiatric: Present: mood/affect appropriate, cooperative - Lab 04/30/17 04:30 04/30/17 04:30 Most recent lab results Calcium 9.1 mg/dL (8.6-10.8) 04/30/17 04:30 Phosphorus 3.6 mg/dL (2.3-4.7) 04/29/17 04:40 Urine Creatinine 62 mg/dL 04/26/17 Unknown Urine Sodium 56.0 mEq/L 04/26/17 Unknown Urine Total Protein 32 mg/dL (1-14) H 04/26/17 Unknown - VTE Documentation of Mechanical Device: Graduated compression elastic hosiery Consult Discharge Plan - Plan Referrals: Stuart Cespedes MD [Primary Care Provider] - 05/06/17 1:30 pm (Please follow up as schedule...)
[2017-04-30] MEDS: traMADol 50 MG TABLET PO PRN (21:11)
[2017-04-30] MEDS: traZODone 50 MG TABLET PO PRN (21:11)
[2017-05-01 06:06] LABS: Hematocrit 28.6 % (37.5-50.1); Red Cell Distribution Width 19.8 % (11.5-14.5)
[2017-05-01 06:08] LABS: Basophils # 0.1 K/mcL (0.0-0.2); Basophils % 0.6 %; Eosinophils # 0.7 K/mcL (0.0-0.6); Eosinophils % 8.7 %; Hemoglobin 8.4 g/dL (12.9-16.9); Immature Granulocytes % 0.3 % (0-4); Immature Platelets 11.2 % (1.1-6.1); Lymphocytes # 1.3 K/mcL (0.6-4.6); Mean Corpuscular HGB Conc 29.4 g/dL (31.6-35.5); Mean Corpuscular Volume 78.1 fL (83.0-100.0); Mean Platelet Volume 10.9 fL (9.4-12.4); Monocytes % 12.3 %; Neutrophils # 4.8 K/mcL (1.6-8.9); Platelet Count 142 K/mcL (140-400); Red Blood Count 3.66 M/mcL (4.19-5.50); Segmented Neutrophils % 61.1 %
[2017-05-01 06:43] LABS: Calcium 9.2 mg/dL (8.6-10.8); Potassium 4.7 mEq/L (3.5-4.5)
[2017-05-01 08:11] LABS: Platelet Estimate Normal (Normal)
[2017-05-01] MEDS: Insulin LISPRO 300 UNITS/3 ML VIAL SQ SCH ×4 (08:23→22:40)
[2017-05-01] MEDS: Isosorbide MONOnitrate (24 HR) 60 MG TAB.ER.24H PO SCH (08:23)
[2017-05-01] MEDS: Gabapentin 100 MG CAPSULE PO SCH ×3 (08:26→20:55)
[2017-05-01] MEDS: Furosemide 20 MG TABLET PO SCH ×2 (08:26→16:31)
[2017-05-01] MEDS: amLODIPine 5 MG TABLET PO SCH (08:26)
[2017-05-01] MEDS: Magnesium Oxide 400 MG TABLET PO SCH (08:26)
[2017-05-01] MEDS: cloNIDine HCl 0.1 MG TABLET PO SCH ×3 (08:27→20:55)
[2017-05-01] MEDS: Aspirin 81 MG TAB.CHEW PO SCH (08:27)
--- NOTE | 2017-05-01 12:34 | Nephrology Progress Note ---
Date of Encounter: 05/01/17 Time of Encounter: 09:00 - Assessment and Plan (1) TRELL (acute kidney injury) Current Visit: Yes Status: Acute SCr stable. Okay to d/c the concepcion catheter. His primary scallop binder is Dr. Collier; would recommend close follow up in abut 2-3 weeks if possible with a BMP in about 1 week after discharge. This close of follow up is to assess his volume status and renal function since he's been on a lower dose of diuretics than compared to admission. Urinary retention: recommend adding Flomax. Yesterday I asked for PT/OT to assess for compression stockings and for lymphedema clinic follow up. Discussed in detail with the floor RN and the patient plus his . Cont to follow a renal protective strategy (2) CKD (chronic kidney disease), stage III Current Visit: Yes Status: Acute B/l CKD stage III (3) Oligouria Current Visit: Yes Status: Acute Continue strict I/Os to help assess if he has any signs of renal recovery. See above (4) Acute exacerbation of congestive heart failure Current Visit: Yes Status: Acute As per primary Qualifiers: Congestive heart failure type: diastolic Qualified Code(s): I50.33 - Acute on chronic diastolic (congestive) heart failure (5) Anticoagulated on Coumadin Current Visit: Yes Status: Acute Okay to resume home Plavix and Coumadin since he will not need a Permacath. (6) Hyponatremia Current Visit: Yes Status: Acute Hypervolemic hyponatremia. Trending better. (7) Gross hematuria Current Visit: Yes Status: Acute See above (8) Left knee pain Current Visit: Yes Status: Acute See above. As per primary. Qualifiers: Chronicity: acute Qualified Code(s): M25.562 - Pain in left knee Subjective Principal diagnosis: TRELL, Anasarca Interval history: Pt was s/e this AM. He reported feeling better without N/V or uremic symptoms. Restless night of sleep Objective - Vital Signs Vital signs: Vital Signs Temp Pulse Resp BP Pulse Ox 05/01/17 11:32 97.7 F 54 16 126/70 95 05/01/17 07:30 98.4 F 63 16 154/73 91 05/01/17 04:06 98.9 F 57 16 131/80 89 05/01/17 00:38 98.6 F 55 16 127/66 94 04/30/17 20:34 99.2 F 68 18 149/70 90 04/30/17 16:32 97.5 F L 69 18 158/74 93 Intake and Output 04/30/17 05/01/17 05/01/17 23:59 07:59 15:59 Intake Total 120 / 120 240 / 240 Output Total 25 / 25 50 / 50 Balance 95 / 95 190 / 190 Intake: Oral 120 / 120 240 / 240 Output: Urine 25 / 25 50 / 50 Other: Meal Dinner Breakfast Percent of Meal Consumed 20% 70% # Voids 1 1 Weight 90.5 kg 90.5 kg Blood Glucose* 311 163 211 Patient Weight 05/01/17 23:59 Weight 90.5 kg - General Appearance Exam: General appearance: Present: well-developed, well-nourished, appears started age EENT: Present: ATNC, PERRL, mucous membranes moist Neck: Present: supple Respiratory: Present: rhonchi (fine basilar rhonchi) Cardiology: Present: no murmurs, edema (slightly less tense b/l pretibial edema) , regular rate, regular rhythm, normal S1, normal S2 Gastrointestinal: Present: normoactive bowel sounds, no tenderness, no guarding Integumentary: Present: erythema Neurologic: Present: no focal deficit, no asterixis Musculoskeletal: Present: no cyanosis, no clubbing Additional Comments: Left knee slight erythema, new. Psychiatric: Present: mood/affect appropriate, cooperative - Lab 05/01/17 05:43 05/01/17 05:43 Most recent lab results Calcium 9.2 mg/dL (8.6-10.8) 05/01/17 05:43 Phosphorus 3.6 mg/dL (2.3-4.7) 04/29/17 04:40 Urine Creatinine 62 mg/dL 04/26/17 Unknown Urine Sodium 56.0 mEq/L 04/26/17 Unknown Urine Total Protein 32 mg/dL (1-14) H 04/26/17 Unknown - VTE Documentation of Mechanical Device: Graduated compression elastic hosiery Consult Discharge Plan - Plan Referrals: Stuart Cespedes MD [Primary Care Provider] - 05/06/17 1:30 pm (Please follow up as schedule...)
--- NOTE | 2017-05-01 13:10 | Internal Med Progress Note ---
<Aruna Mccormackew - Last Filed: 05/01/17 16:16> Date of Encounter: 05/01/17 Time of Encounter: 10:00 - Assessment and plan (1) Renal failure (ARF), acute on chronic Current Visit: Yes Status: Suspected Assessment and plan: -TRELL on CKD stage III. - BUN/creatinine of 36/2.34, stable from yesterday. 29/2.33 - Nephrology following, appreciate recommendations - Concepcion catheter removed by nephrology, not able to urinate at this time. 500 mL on bladder scan, removed with straight catheter this afternoon. Encouraged bladder training and started flomax per nephrology - Removed IJ per nephology, will restart coumadin and plavix. Will not likely need long winder tender dialysis. - Continue fluid resections, small Lasix dose - Will remain for an additional day to monitor for urine output. Qualifiers: Acute renal failure type: with acute tubular necrosis Chronic kidney disease stage: stage 3 (moderate) Qualified Code(s): N17.0 - Acute kidney failure with tubular necrosis; N18.3 - Chronic kidney disease, stage 3 (moderate ) (2) Acute exacerbation of congestive heart failure Current Visit: Yes Status: Acute Assessment and plan: -Resolved. Euvolemic, asymptomatic BNP of 2631 emergency Department Fluid restriction, we will continue small dosage of Lasix Patient to work with physical therapy today, reports being able to walk with walker down the [place] Qualifiers: Congestive heart failure type: diastolic Qualified Code(s): I50.33 - Acute on chronic diastolic (congestive) heart failure (3) Afib Current Visit: Yes Status: Acute Assessment and plan: Rate controlled at 50-60s bpm on carvedilol Will continue home dose of coumadin and plavix today. Temporary IJ removed. Qualifiers: Atrial fibrillation type: paroxysmal Qualified Code(s): I48.0 - Paroxysmal atrial fibrillation (4) Type 2 diabetes mellitus Current Visit: Yes Status: Acute Assessment and plan: Sugar of 182 most recently. A1c of 9.7 Sliding insulin scale instruction of more rigid monitoring of blood sugars upon discharge Qualifiers: Diabetes mellitus complication status: with kidney complications Diabetes mellitus complication detail: with chronic kidney disease Diabetes mellitus penitentiary insulin use: without long winder tender use Chronic kidney disease stage: stage 3 (moderate) Qualified Code(s): E11.22 - Type 2 diabetes mellitus with diabetic chronic kidney disease; N18.3 - Chronic kidney disease, stage 3 ( moderate) (5) Hyperkalemia Current Visit: Yes Status: Resolved Assessment and plan: Resolved with dialysis Likely secondary to acute renal failure Most recent of 4.7 Monitor tomorrow for future need of dialysis, defer to nephrology (6) Hyponatremia Current Visit: Yes Status: Acute Assessment and plan: Resolved Nephrology following, appreciate recommendations Likely hypervolemic hyponatremia secondary to anasarca most recently 134 Uric acid of 7.9, unlikely SIADH etiology Will diuresis as tolerated, fluid restriction (7) Knee pain, acute Current Visit: Yes Status: Resolved Assessment and plan: X-ray of knee was grossly normal yesterday - Patient reports pain worse with motion - No evidence of warmth, swelling of knee joint - Possible etiologies include gout versus tendinopathy versus bursitis versus patellofemoral pain - We will treat symptomatically for time being, uric acid level, further management as outpatient. Qualifiers: Laterality: left Qualified Code(s): M25.562 - Pain in left knee (8) DVT prophylaxis Current Visit: Yes Status: Acute Assessment and plan: Coumadin resumed Will put in SCDs - Time Spent With Patient 25 - 35 minutes - Subjective Interval history: Patient was seen and examined at bedside this morning. He states he is continuing to feel much better than admission. He has not been able to make much urine since removal of concepcion catheter. He has tried multiple times but only reports dribbling. He denies any symptoms of shortness of breath, chest pain, fevers, chills. His sleep and knee pain have improved. He is in agreement to straight cath today as well as temporary IJ removal. - Constitutional Vitals: Temp Pulse Resp BP Pulse Ox 97.7 F 54 16 126/70 95 05/01/17 11:32 05/01/17 11:32 05/01/17 11:32 05/01/17 11:32 05/01/17 11:32 General appearance: Present: A&O X 3, pleasant, no acute distress Exam: Gen.: Vitals noted. No acute distress. AAOx3 HEENT: PERRL/EOMI, oropharynx clear, Normocephalic, atraumatic Neck: Supple. No adenopathy. Cardiac: Irregularly irregular rhythm, no murmur, +S1/S2 Pulmonary: CTA bilaterally, no wheezes, rales or rhonchi, equal chest expansion Abdomen: soft, nontender, BS noted, no guarding. No suprapubic tenderness. Back: Nontender throughout. MSK: ROM intact, no joint swelling noted Extremities: Bilateral lower extremity edema and erythema secondary to venous stasis. nontender calf, no cyanosis or clubbing Neuro: A&Ox3, moves all extremities, no focal deficits Psych: Appropriate mood and behavior Internal Medicine: Result - Labs CBC & Chem 7: 05/01/17 05:43 05/01/17 05:43 Labs: Short CBC 05/01/17 Range/Units 05:43 WBC 7.8 (4.3-11.1) K/mcL Hgb 8.4 L (12.9-16.9) g/dL Hct 28.6 L (37.5-50.1) % Plt Count 142 (140-400) K/mcL Neutrophils # 4.8 (1.6-8.9) K/mcL BMP 05/01/17 05:43 Sodium 136 Potassium 4.7 H Chloride 100 Carbon Dioxide 27 BUN 36 H Creatinine 2.34 H Glucose 182 H Calcium 9.2 - ABG Interpretation ABG results: PT/INR, D-dimer PT 17.5 Seconds (9.4-12.1) H 04/30/17 04:30 - VTE Documentation of Mechanical Device: Graduated compression elastic hosiery Consult Discharge Plan - Plan Referrals: Stuart Cespedes MD [Primary Care Provider] - 05/06/17 1:30 pm (Please follow up as schedule...) <Trell Lane P - Last Filed: 05/01/17 17:44> Date of Encounter: 05/01/17 - Constitutional Vitals: Temp Pulse Resp BP Pulse Ox 97.7 F 64 16 142/73 93 05/01/17 16:39 05/01/17 16:39 05/01/17 16:39 05/01/17 16:39 05/01/17 16:39 Internal Medicine: Result - Labs CBC & Chem 7: 05/01/17 05:43 05/01/17 05:43 Labs: Short CBC 05/01/17 Range/Units 05:43 WBC 7.8 (4.3-11.1) K/mcL Hgb 8.4 L (12.9-16.9) g/dL Hct 28.6 L (37.5-50.1) % Plt Count 142 (140-400) K/mcL Neutrophils # 4.8 (1.6-8.9) K/mcL BMP 05/01/17 05:43 Sodium 136 Potassium 4.7 H Chloride 100 Carbon Dioxide 27 BUN 36 H Creatinine 2.34 H Glucose 182 H Calcium 9.2 - ABG Interpretation ABG results: PT/INR, D-dimer PT 17.5 Seconds (9.4-12.1) H 04/30/17 04:30 - Attending Attestation I examined this patient and my medical decision-making was reviewed with the Resident Physician. I agree with the documented findings, disposition and treatment plan as described except to the extent set forth below.
[2017-05-01] MEDS ORDERED: *HR* Warfarin 4 MG TABLET PO SCH (18:00)
[2017-05-01] MEDS ORDERED: Warfarin perPT PO PRN (18:00)
[2017-05-01] MEDS: traMADol 50 MG TABLET PO PRN (20:54)
[2017-05-01] MEDS: traZODone 50 MG TABLET PO PRN (20:55)
[2017-05-02] MEDS: traMADol 50 MG TABLET PO PRN (04:51)
[2017-05-02 05:19] LABS: INR 1.5; Prothrombin Time 16.8 Seconds (9.4-12.1)
[2017-05-02 05:21] LABS: Hematocrit 30.4 % (37.5-50.1); Hemoglobin 8.6 g/dL (12.9-16.9); Immature Platelets 12.4 % (1.1-6.1); Mean Corpuscular HGB Conc 28.3 g/dL (31.6-35.5); Mean Corpuscular Hemoglobin 22.3 pg (28.0-33.3); Platelet Count 154 K/mcL (140-400); Red Blood Count 3.85 M/mcL (4.19-5.50); Red Cell Distribution Width 19.6 % (11.5-14.5)
[2017-05-02 05:33] LABS: Calcium 9.4 mg/dL (8.6-10.8); Potassium 5.1 mEq/L (3.5-4.5)
[2017-05-02 07:22] VITALS: BP 145/78
[2017-05-02] MEDS: cloNIDine HCl 0.1 MG TABLET PO SCH (07:57)
[2017-05-02] MEDS: Furosemide 20 MG TABLET PO SCH (07:57)
[2017-05-02] MEDS: amLODIPine 5 MG TABLET PO SCH (07:57)
[2017-05-02] MEDS: Aspirin 81 MG TAB.CHEW PO SCH (07:57)
[2017-05-02] MEDS: Gabapentin 100 MG CAPSULE PO SCH (07:57)
[2017-05-02] MEDS: Isosorbide MONOnitrate (24 HR) 60 MG TAB.ER.24H PO SCH (07:58)
[2017-05-02] MEDS: Magnesium Oxide 400 MG TABLET PO SCH (07:58)
[2017-05-02] MEDS: Insulin LISPRO 300 UNITS/3 ML VIAL SQ SCH ×2 (07:58→11:39)
--- NOTE | 2017-05-02 10:33 | Discharge Summary ---
<BradyTanvir terry - Last Filed: 05/02/17 11:44> Date of Encounter: 05/02/17 Time of Encounter: 10:29 - Discharge Diagnosis (1) Renal failure (ARF), acute on chronic Priority: Primary Status: Resolved Qualifiers: Acute renal failure type: with acute tubular necrosis Chronic kidney disease stage: stage 3 (moderate) Qualified Code(s): N17.0 - Acute kidney failure with tubular necrosis; N18.3 - Chronic kidney disease, stage 3 (moderate ) (2) Acute exacerbation of congestive heart failure Priority: Secondary Status: Resolved Qualifiers: Congestive heart failure type: diastolic Qualified Code(s): I50.33 - Acute on chronic diastolic (congestive) heart failure (3) Afib Priority: Secondary Status: Chronic Qualifiers: Atrial fibrillation type: paroxysmal Qualified Code(s): I48.0 - Paroxysmal atrial fibrillation (4) Type 2 diabetes mellitus Priority: Secondary Status: Chronic Qualifiers: Diabetes mellitus complication status: with kidney complications Diabetes mellitus complication detail: with chronic kidney disease Diabetes mellitus half-way insulin use: without long term care pharmacist use Chronic kidney disease stage: stage 3 (moderate) Qualified Code(s): E11.22 - Type 2 diabetes mellitus with diabetic chronic kidney disease; N18.3 - Chronic kidney disease, stage 3 ( moderate) (5) Hyperkalemia Priority: Secondary Status: Resolved (6) Hyponatremia Priority: Secondary Status: Resolved (7) Knee pain, acute Priority: Secondary Status: Resolved Qualifiers: Laterality: left Qualified Code(s): M25.562 - Pain in left knee (8) DVT prophylaxis Priority: Secondary Status: Acute - Discharge Medications Prescriptions: Furosemide [Lasix] 20 mg PO BIDDIURETIC #60 tab Tamsulosin [Flomax] 0.4 mg PO DAILY #30 cap Home Medications: Amlodipine Besylate/Benazepril [Lotrel 10-40 mg Capsule] 1 tab PO DAILY [History] Aspirin 81 mg PO DAILY 04/25/17 [History] Carvedilol [Coreg] 6.25 mg PO BID 04/25/17 [History] Clopidogrel [Plavix] 75 mg PO DAILY 04/25/17 [History] Furosemide [Lasix] 80 mg PO HS 04/25/17 [History] Gabapentin [Neurontin] 100 mg PO TID 04/25/17 [History] Isosorbide MONOnitrate (24 HR) [Imdur] 60 mg PO DAILY 04/25/17 [History] Magnesium Oxide [Mag-Ox] 400 mg PO DAILY 04/25/17 [History] Pantoprazole Sodium 40 mg PO DAILY 04/25/17 [History] Simvastatin [Zocor] 80 mg PO HS 04/25/17 [History] Warfarin [Coumadin] 2 mg PO MOWEFR 04/25/17 [History] Warfarin [Coumadin] 4 mg PO SUTUTHSA 04/25/17 [History] cloNIDine HCl [Clonidine HCl] 0.4 mg PO BID 04/25/17 [History] metOLazone [Zaroxolyn] 5 mg PO DAILY 04/25/17 [History] Furosemide [Lasix] 20 mg PO BIDDIURETIC #60 tab 05/02/17 [Rx] Tamsulosin [Flomax] 0.4 mg PO DAILY #30 cap 05/02/17 [Rx] Allergies/Adverse Reactions: 3 Allergy/AdvReac Type Severity Reaction Status Date / Time No Known Allergies Allergy Verified 04/25/17 14:47 Date of admission: 04/25/17 13:04 Primary care physician: Stuart Cespedes, Consults: 04/25/17 13:44 Consult to Pastoral Services [CONS] Routine Comment: 04/25/17 14:57 Consult to Nephrology [CONS] Routine Consulting Provider: Kidney Ivet/ZAHRA/AFSHIN/JELENA Reason for Consult: 66M [address] Collier transferred from [place] with TRELL on CKD, most recent Cr 2.98 up from baseline of 1.47. Call Completed: Yes 04/26/17 10:15 Consult to Dialysis [CONS] ONCE 04/26/17 11:22 Consult to Interventional Radiology [CONS] Routine Consulting Provider: Radiology Interventional Cols Reason for Consult: Please evaluate for placement of a temporary HD catheter. First attempted by me without successful placement. Time Notified: 11:15 Call Completed: Yes 04/27/17 09:15 Consult to Dialysis [CONS] ONCE 04/28/17 09:45 Consult to Dialysis [CONS] ONCE 04/30/17 09:27 Consult to Occupational Therapy [CONS] Routine Comment: Evaluate, develop and implement POC Reason for Consult: weakness Consult to Physical Therapy [CONS] Routine Comment: Evaluate, develop and implement POC Reason for Consult: Weakness and lyphadema wraps? 05/01/17 07:59 Consult to Scientific Informatics Leader [CONS] Routine Reason for SW Consult: needs ecf Discharging clinician: Tanvir Mccormack Anticipated date of discharge: 05/02/17 - Patient Status Disposition: Home Health Service Condition: Fair Functional capacity at discharge: uses cane/walker Overall status at discharge: patient is progressing back to baseline - Discharge Instructions Follow Up With: Stuart Cespedes MD [Primary Care Provider] - 05/06/17 1:30 pm (Please follow up as schedule...) Bobby Redd MD [Partnered Physician] - 05/07/17 3:00 pm (Please follow up as schedule...) Additional Instructions: Please follow up with your primary care physician and Dr. Collier for further management of your chronic conditions. Continue to take all your meds as prescribed and watch the carbohydrates for the diabetes. - Diet and Activity Activity: as per physical therapy, increase activity as tolerated, resume usual activities as tolerated Diet: diabetic diet Hospital course: Mr. Najera is a 66 year old male who presented the the ED from [facility] for TRELL on chronic kidney disease. Patient presented to the hospital on the third with chills, shortness of breath, fever and body aches, was diagnosed with sepsis of unknown cause was treated with Zosyn and Vanc. While there, his sepsis symptoms improved, but his creatinine increased, and the vancomycin was discontinued. However his kidney function continued to decline with creatinine at discharge from their facility of 2.98, and oliguria with low urine output. He was aggressively diuresed, with Lasix 100 mg IV push twice a day with an addition of Zaroxolyn daily. Patient follows with Dr. Collier for his chronic kidney disease as an outpatient. Dr. Escalante was called and he requested patient be transferred to our facility. As for the sepsis, UA was reportedly negative for infection, chest x-ray on the fifth showed cardiomegaly with interstitial pulmonary edema. CT of the abdomen and pelvis on the sixth showed no acute in her abdominal or pelvic abnormality, small amount of ascites, anasarca and mesenteric edema, and small bilateral pleural effusions. He is fluid overloaded, his BNP is elevated, most recently at 1446. Additionally his INR is supratherapeutic at 3.6. Vital signs were significant for bradycardia on admission and his BB was held. Neprhology was consulted for worsening renal function. During course of hospital stay, Mr. najera gradually improved. He was given a temporary IJ dialysis catheter which he tolerated well. He underwent 3 sessions of dialysis with improvement of his kidney function. renal US showed no hydronephrosis. After 3 days of dialysis he began to make urine and concepcion catheter was placed. He was initially placed on zosyn for the possible LE cellulitis, and was changed to ancef for better skin laly coverage. This was discontinued for unlikely sepsis picture. His also presented with hyperkalemia and hyponatremia both of which improved with dialysis. Per nephrology, patient will likely not need half-way dialysis at this time and his kidney function has improved back to baseline. Temporary dialysis catheter was removed, concepcion discontinued. After a small decrease in renal function, we monitored him for an additional 24 hours and made sure patient could excrete urine. On day of discharge, patient's Vital signs were stable, lab values stable, patient had no complaints. He was instructed to follow up with his PCP and Dr. Collier (nephro) within a week. He was also instructed to better control his diabetes. He will be discharged home in stable medical condition. He was evaluated by PT/OT who recommend SNF/ECF, however patient and states that they would like home health. - Time Spent with Patient Total time spent providing and/or coordinating discharge services:40 minutes - Constitutional Vitals: Temp Pulse Resp BP Pulse Ox 98.3 F 62 18 145/78 90 05/02/17 07:18 05/02/17 07:18 05/02/17 07:18 05/02/17 07:18 05/02/17 07:18 General appearance: Present: A&O X 3, pleasant, no acute distress - Head Head exam: Present: atraumatic, normal inspection, normocephalic - ENT ENT exam: Present: mucous membranes moist - Respiratory Respiratory exam: Present: CTAB. Absent: rales, rhonchi, stridor, wheezes - Cardiovascular Cardiovascular exam: Present: irregular rhythm, +S1, +S2. Absent: diastolic murmur, rubs, systolic murmur, tachycardia - GI/Abdominal GI/Abdominal exam: Present: normal bowel sounds, soft. Absent: mass, tenderness - Extremities Exam Extremities exam: Present: warm. Absent: calf tenderness Additional comments: Chronic b/l LE swelling and erythema secondary to chronic venous stasis - Neurological Exam Neurological exam: Present: CN II-XII intact, no focal deficits. Absent: speech deficit - Psychiatric Psychiatric exam: Present: normal affect, normal mood - VTE Documentation of Mechanical Device: Graduated compression elastic hosiery <Ariana,Trell P - Last Filed: 05/02/17 17:43> Date of Encounter: 05/02/17 Date of admission: 04/25/17 13:04 Primary care physician: Stuart Cespedes, Consults: 04/25/17 13:44 Consult to Pastoral Services [CONS] Routine Comment: 04/25/17 14:57 Consult to Nephrology [CONS] Routine Consulting Provider: Kidney Ivet/ZAHRA/AFSHIN/JELENA Reason for Consult: 66[address] Collier transferred from [place] with TRELL on CKD, most recent Cr 2.98 up from baseline of 1.47. Call Completed: Yes 04/26/17 10:15 Consult to Dialysis [CONS] ONCE 04/26/17 11:22 Consult to Interventional Radiology [CONS] Routine Consulting Provider: Radiology Interventional Cols Reason for Consult: Please evaluate for placement of a temporary HD catheter. First attempted by me without successful placement. Time Notified: 11:15 Call Completed: Yes 04/27/17 09:15 Consult to Dialysis [CONS] ONCE 04/28/17 09:45 Consult to Dialysis [CONS] ONCE 04/30/17 09:27 Consult to Occupational Therapy [CONS] Routine Comment: Evaluate, develop and implement POC Reason for Consult: weakness Consult to Physical Therapy [CONS] Routine Comment: Evaluate, develop and implement POC Reason for Consult: Weakness and lyphadema wraps? 05/01/17 07:59 Consult to Scientific Informatics Leader [CONS] Routine Reason for SW Consult: needs ecf Hospital course: Mr. Najera is a 66 year old male - Time Spent with Patient Total time spent providing and/or coordinating discharge services: - Constitutional Vitals: Temp Pulse Resp BP Pulse Ox 98.3 F 62 18 145/78 94 05/02/17 07:18 05/02/17 07:18 05/02/17 07:18 05/02/17 07:18 05/02/17 11:08 - Attending Attestation I examined this patient and my medical decision-making was reviewed with the Resident Physician. I agree with the documented findings, disposition and treatment plan as described except to the extent set forth below.
--- NOTE | 2017-05-02 11:00 | Physician Discharge Referral ---
<DanielTanvir goff - Last Filed: 05/02/17 10:58> Home Health/Hosp Referral Info Transfer to: Home Health Provider in Charge Post Discharge: PCP - Diagnosis (1) Renal failure (ARF), acute on chronic Priority: Primary Status: Resolved (2) Acute exacerbation of congestive heart failure Priority: Secondary Status: Resolved (3) Afib Priority: Secondary Status: Chronic (4) Type 2 diabetes mellitus Priority: Secondary Status: Chronic (5) Hyperkalemia Priority: Secondary Status: Resolved (6) Hyponatremia Priority: Secondary Status: Resolved (7) Knee pain, acute Priority: Secondary Status: Resolved (8) DVT prophylaxis Priority: Secondary Status: Acute - Respiratory Orders Oxygen / L per min (2) Smoking Cessation: Smoking cessation has been advised. For more information, call the [place] Quit Line at 6-308-JBHN-NOW. - Diet/Nutrition Diet/Nutrition Orders: Regular, No Concentrated Sweets - Activity Activity Orders: Ambulate - Services Needed Following services are medically necessary services: Physical Therapy, Occupational Therapy - Transfer Medications Prescriptions: Furosemide [Lasix] 20 mg PO BIDDIURETIC #60 tab Tamsulosin [Flomax] 0.4 mg PO DAILY #30 cap Home Medications: Amlodipine Besylate/Benazepril [Lotrel 10-40 mg Capsule] 1 tab PO DAILY [History] Aspirin 81 mg PO DAILY 04/25/17 [History] Carvedilol [Coreg] 6.25 mg PO BID 04/25/17 [History] Clopidogrel [Plavix] 75 mg PO DAILY 04/25/17 [History] Furosemide [Lasix] 80 mg PO HS 04/25/17 [History] Gabapentin [Neurontin] 100 mg PO TID 04/25/17 [History] Isosorbide MONOnitrate (24 HR) [Imdur] 60 mg PO DAILY 04/25/17 [History] Magnesium Oxide [Mag-Ox] 400 mg PO DAILY 04/25/17 [History] Pantoprazole Sodium 40 mg PO DAILY 04/25/17 [History] Simvastatin [Zocor] 80 mg PO HS 04/25/17 [History] Warfarin [Coumadin] 2 mg PO MOWEFR 04/25/17 [History] Warfarin [Coumadin] 4 mg PO SUTUTHSA 04/25/17 [History] cloNIDine HCl [Clonidine HCl] 0.4 mg PO BID 04/25/17 [History] metOLazone [Zaroxolyn] 5 mg PO DAILY 04/25/17 [History] Furosemide [Lasix] 20 mg PO BIDDIURETIC #60 tab 05/02/17 [Rx] Tamsulosin [Flomax] 0.4 mg PO DAILY #30 cap 05/02/17 [Rx] Allergies/Adverse Reactions: 3 Allergy/AdvReac Type Severity Reaction Status Date / Time No Known Allergies Allergy Verified 04/25/17 14:47 Certification: Further, I certify that my clinical findings support that this patient is homebound (i.e. absences from home require considerable and taxing effort and are for medical reasons or yarsanism services or infrequently or short duration when for other reasons) because: Homebound Reason: Leaving home requires considerable and taxing effort due to condition Attestation: My signature below is to certify that this patient is under my care and that I, or nurse practitioner, or a physician's client services assistant working with me, has a face-to -face encounter with this patient. <Trell Lane - Last Filed: 05/02/17 17:43> - Respiratory Orders Smoking Cessation: Smoking cessation has been advised. For more information, call the [place] Tobacco Quit Line at 7-484-BFLJ-NOW. Certification: Further, I certify that my clinical findings support that this patient is homebound (i.e. absences from home require considerable and taxing effort and are for medical reasons or yarsanism services or infrequently or short duration when for other reasons) because: Attestation: My signature below is to certify that this patient is under my care and that I, or nurse practitioner, or a physician's client services assistant working with me, has a face-to -face encounter with this patient.
[2017-05-02] MEDS ORDERED: *HR* Warfarin 2 MG TABLET PO SCH (18:00)
== END 2017-05-02 14:00 | disposition home health service (06) | DRG 682 ==
LOC: SUATTDRO 13:04 → 2ANU 13:04
PROVIDERS: ADMIT Internal Medicine; ATTEND Internal Medicine

== ENCOUNTER 2018-05-31 18:41 | Inpatient (IN) ==
[2018-06-01] MEDS ORDERED: Gadolinium Contrast Agent (WT Based) IV PRN (00:43)
[2018-06-01] MEDS ORDERED: Naloxone 0.4 MG/ML INJ IVP PRN (00:43)
--- NOTE | 2018-06-01 00:53 | Internal Med History&Physical ---
Date of Encounter: 06/01/18 Time of Encounter: 00:53 Internal Medicine - H&P: HPI Chief complaint: Stroke like Sx History of present illness: Mr. Otero is a 67 year old male with a past medical history of diabetes, hypertension, hyperlipidemia and coronary artery disease status post CABG, and atrial fibrillation on anticoagulation who presents with stroke-like symptoms. According to the patient's , he started developing left-sided facial droop and slurred speech while eating dinner around 5 pm. His states that he began coughing shortly thereafter, however does not suspect that he aspirated. Patient was taken to [place] for further workup. His deficits appear to have progressed to include left-sided upper extremity weakness. Patient is currently on aspirin, Plavix and warfarin and was therefore not a candidate for TPA. His INR was noted to be 2.9. CT scan of the head was negative. Patient was given 10 mg of IV labetalol for a blood pressure of 189/90 and subsequently transferred to [place] for further evaluation. Past Med Surg Social Fam HX - Past Medical History Medical history: atrial fibrillation, CHF, coronary artery disease, diabetes, GERD, hyperlipidemia, hypertension, peripheral artery disease, renal disease Additional medical history: psorisis of liver - Past Surgical History Surgical History: colectomy, coronary bypass (CABG), LE stent(s) Additional surgical history: history of open heart in 2004. history of operation for ulerative colitis 1998 - Social History Smoking Status: Former smoker Smokeless Tobacco Status: No Alcohol use: none Drug use: none - Family History Mother Adopted: No Family Member Ethnicity: Non- Living Status: Hx Family Cardiac Disorders: Yes Hx Family Respiratory Disorders: No Hx Family Cancer: No Hx Family GI Disorders: No Hx Family Endocrine Disorder: (DM) Hx Family Neurologic Disorders: No Hx Family HEENT Disorders: No Hx Family Autoimmune Disorders: No Father Living Status: Hx Family GI Disorders: Yes (cirhosis) Internal Medicine - H&P: Meds Aspirin 81 mg PO DAILY 04/25/17 [History] Carvedilol [Coreg] 6.25 mg PO BID 04/25/17 [History] Clopidogrel [Plavix] 75 mg PO DAILY 04/25/17 [History] Furosemide [Lasix] 80 mg PO QAM 04/25/17 [History] Isosorbide MONOnitrate (24 HR) [Imdur] 60 mg PO DAILY 04/25/17 [History] Pantoprazole Sodium 40 mg PO DAILY 04/25/17 [History] Warfarin [Coumadin] 2 mg PO MOWEFR 04/25/17 [History] Warfarin [Coumadin] 4 mg PO SUTUTHSA 04/25/17 [History] Atorvastatin [Lipitor] 40 mg PO HS 06/01/18 [History] Calcitriol [Rocaltrol] 0.25 mcg PO DAILY 06/01/18 [History] Furosemide [Lasix] 20 mg PO HS 06/01/18 [History] Insulin DETEMIR [Levemir Flextouch] 15 unit SQ BID 06/01/18 [History] Insulin Regular, Human [Novolin R] 0 unit SQ TID 06/01/18 [History] Iron Polysaccharide Complex [Pro Fe] 180 mg PO DAILY 06/01/18 [History] Magnesium Oxide [Mag-Oxide Magnesium] 400 mg PO DAILY 06/01/18 [History] predniSONE [PredniSONE] 5 mg PO DAILY 06/01/18 [History] 3 Allergy/AdvReac Type Severity Reaction Status Date / Time No Known Allergies Allergy Verified 04/25/17 14:47 All Systems PM: A 10-system review of systems was performed and is negative for pertinent findings except as documented above in the HPI. - Constitutional Constitutional: no chills, no fever(s), no night sweats - EENT Eyes: no change in vision, no discharge, no pain, no photophobia Ears: no ear discharge, no ear pain, no tinnitus Nose, mouth and throat: no dysphagia, no nasal discharge, no neck pain, no sore throat - Cardiovascular Cardiovascular ROS IM: no chest pain, no diaphoresis, no dyspnea, no lightheadedness, no palpitations, no syncope - Respiratory Respiratory: no cough, no dyspnea, no wheezing, no excessive phlegm production - Gastrointestinal Gastrointestinal: no abdominal pain, no diarrhea, no hematemesis, no hematochezia, no melena, no nausea, no vomiting - Musculoskeletal Musculoskeletal ROS IM: no numbness, no tingling - Integumentary Integumentary IM: no rash, no unusual bruising - Neurological Neurological ROS: no confusion, no convulsions, no focal weakness, no numbness, no tingling, no tremor(s) - Hematologic/Lymphatic Hematologic/Lymphatic: no easy bruising - Constitutional General appearance: Present: A&O X 3 Exam: General: Alert and oriented 3 lying in bed in no acute distress Skin:Normal color, no rash, no lesions. HEENT:EOM, pupils equal, round and reactive. Cardiovascular:Normal S1 & S2, no rubs, murmurs or gallops. No JVD. Pulse regular. Lungs:Normal breath sounds, no wheezes or crackles. Abdomen:Soft, non-tender, no rigidity. Extremities:No deformity, no edema or tenderness, no joint swelling or clubbing. Neurological: Normal cognition; left-sided facial droop noted. Cranial nerves II through XII intact. Left upper extremity muscle strength 2 out of 5. Right upper extremity muscle strength 5 out of 5. Lower extremity muscle strength 5 out of 5 bilaterally. Sensation intact Pulses:Carotid and radial pulses normal +2. Rest of the physical exam is non contributory Internal Med - H&P Results - Labs CBC & Chem 7: 06/01/18 01:22 06/01/18 01:22 - Assessment and plan (1) CVA (cerebral vascular accident) Current Visit: Yes Status: Acute Assessment and plan: 67-year-old male with history of atrial fibrillation on anticoagulation, hypertension, diabetes, hyperlipidemia who presents with what appears to be an ischemic stroke with persistent facial droop, slurred speech, and left-sided weakness of the upper extremity. Patient was on aspirin, Plavix and Coumadin with a therapeutic INR. Initial CT was unremarkable. Transferred from [place] for further evaluation. Neuro checks every hour Keep patient NPO due to concern of dysphagia. Will need speech swallow evaluation Allow for permissive hypertension. Patient received 10 mg of labetalol IV push for a blood pressure of 189/90 or unclear reasons. MRI in the morning Echocardiogram and carotid duplex Neurology consult Qualifiers: CVA mechanism: embolism Precerebral and cerebral artery: middle cerebral artery Laterality of affected vessel: right Qualified Code(s): I63.411 - Cerebral infarction due to embolism of right middle cerebral artery (2) Elevated troponin Current Visit: Yes Status: Acute Assessment and plan: Elevated troponin on initial laboratory workup in the setting of chronic kidney disease and history of coronary artery disease status post CABG. No reports of chest pain. EKG was unremarkable except for findings of atrial fibrillation. Trend troponin for now. Continue telemetry. (3) CKD (chronic kidney disease), stage III Current Visit: No Status: Acute Assessment and plan: Chronic kidney disease. Creatinine appears stable. We will monitor. (4) Afib Current Visit: No Status: Chronic Assessment and plan: Atrial fibrillation rate controlled on anticoagulation. Last INR 2.5. Resume Coumadin once patient passes speech and swallow evaluation. Qualifiers: Atrial fibrillation type: paroxysmal Qualified Code(s): I48.0 - Paroxysmal atrial fibrillation (5) Congestive heart failure Current Visit: Yes Status: Acute Assessment and plan: Patient noted to have an elevated BNP on blood work. He is currently on Lasix. No evidence of acute exacerbation at this time. We will resume Lasix after the first 24 hours to allow for permissive hypertension. Qualifiers: Heart failure chronicity: unspecified Qualified Code(s): I50.9 - Heart failure, unspecified (6) Type 2 diabetes mellitus Current Visit: No Status: Chronic Assessment and plan: Blood glucose checks. We will allow for moderate hyperglycemia within the range of 140-180 for now. Sliding scale insulin. 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
[2018-06-01] MEDS ORDERED: Dextrose Gel 15 GM/37.5 ML TUBE PO PRN ×2 (01:03)
[2018-06-01] MEDS ORDERED: *HR* Dextrose 50 % in Water (Syg) 50 ML SYRINGE IVP PRN (01:03)
[2018-06-01] MEDS ORDERED: D5% in Water 1,000 ML IVC PRN (01:03)
[2018-06-01 01:36] LABS: Basophils # 0.1 K/mcL (0.0-0.2); Basophils % 0.9 %; Eosinophils # 0.2 K/mcL (0.0-0.6); Eosinophils % 3.1 %; Hematocrit 32.4 % (37.5-50.1); Hemoglobin 9.4 g/dL (12.9-16.9); Immature Granulocytes % 0.2 % (0-4); Lymphocytes # 1.5 K/mcL (0.6-4.6); Lymphocytes % 23.3 %; Mean Corpuscular Hemoglobin 23.2 pg (28.0-33.3); Mean Platelet Volume 11.8 fL (9.4-12.4); Monocytes # 0.6 K/mcL (0.0-1.3); Monocytes % 9.5 %; Neutrophils # 4.1 K/mcL (1.6-8.9); Platelet Count 202 K/mcL (140-400); Red Blood Count 4.05 M/mcL (4.19-5.50); Red Cell Distribution Width 18.3 % (11.5-14.5)
[2018-06-01 01:50] LABS: INR 2.5; Prothrombin Time 28.7 Seconds (9.4-12.1)
[2018-06-01 01:55] LABS: Albumin 3.5 g/dL (3.5-5.7); Albumin/Globulin Ratio 1.1 (1.1-2.2); Bilirubin,Total 1.2 mg/dL (0.3-1.0); Calcium 9.2 mg/dL (8.6-10.3); Chol/HDL Ratio 2.2 (0-4.9); Globulin 3.3 g/dL (2.4-3.5); Potassium 4.8 mEq/L (3.5-5.1); Total Protein 6.8 g/dL (6.4-8.9)
[2018-06-01 01:57] LABS: Troponin I 0.08 ng/mL (< 0.04)
[2018-06-01] MEDS ORDERED: D5% in 0.45% NACL 1,000 ML IVC SCH (05:15)
[2018-06-01] MEDS: Insulin LISPRO 300 UNITS/3 ML VIAL SQ SCH ×3 (06:16→17:56)
[2018-06-01 09:43] LABS: Estimated Average Glucose 214 mg/dl; Hemoglobin A1C 9.1 %
--- NOTE | 2018-06-01 13:13 | Event Note ---
Date of Encounter: 06/01/18 Time of Encounter: 13:12 No acute changes per nurse. Pt seen after midnight. Neurology consulted to see and awaiting recommendations, and appreciate consult.
[2018-06-01 13:39] LABS: Bilirubin,Urine Negative (Negative); Blood,Urine Negative (Negative); Clarity,Urine Clear (Clear); Color,Urine Yellow (Yellow); Glucose,Urine (UA) Normal (Normal); Ketones,Urine Negative (Negative); Leukocyte Esterase,Urine Negative (Negative); Nitrite,Urine Negative (Negative); PH,Urine 5.5 pH Units (5.0-8.0); Protein,Urine 30 mg/dL (Neg-Trace); Specific Gravity,Urine 1.018 (1.010-1.025); Urobilinogen,Urine Normal (Normal)
[2018-06-01 13:44] LABS: Bacteria,Urine None Seen per hpf (None-Few); Hyaline Casts,Urine None Seen per lpf (None-Few); RBC,Urine 0-3 per hpf (0-3); Squamous Epithelial Cell,Urine Few per lpf (None-Few); WBC,Urine 0-3 per hpf (0-3)
--- NOTE | 2018-06-01 15:49 | Neurology - Consult Note ---
Date of Encounter: 06/01/18 Time of Encounter: 15:35 Assessment and Plan (1) CVA (cerebral vascular accident) Current Visit: Yes Status: Acute Patient with atrial fibrillation on coumadin and multiple risk factors for CVA on aspirin and plavix who developed acute onset of lef facial droop, left sided weakness arm > leg slurred speech with neurological examination showing left sided paralysis, arm > leg and likely he has stroke involving the right MCA territory, not sure this was an embolic or thrombotic event but considering that he is already on anticoagulation therapy i am concerning about thrombotic event and would like to get full stroke work up including carotid, echo and MRI of brain. For now, continue aspirin plavix and coumadin. CT of head showed no large stroke and clinically he has no hypersomnolence and so it is likely the size of the stroke is not large. Await stroke work up. DVT prophylaxis, speech and swallow evaluation and PT evaluation. Total time on this case was approximately 50 minutes, and more than 50% was directed to face to face patient care. Qualifiers: CVA mechanism: embolism Precerebral and cerebral artery: middle cerebral artery Laterality of affected vessel: right Qualified Code(s): I63.411 - Cerebral infarction due to embolism of right middle cerebral artery History of Present Illness Chief complaint: left sided weakness, facial droop HPI: Mr. Otero is a 67 year old male with PMH significant for CKD, DM, CKD anemia, oiter, CAD, ad ASHD who developed acute onset of left facial droop and left arm weakness and slurred speech. Patient in interviewed alone without his family members present. he states that he feels bad and that he could not lift his left arm and could not eat. He has quite significant left arm and facial weakness and dysarthria. Per medical records, patient developed acute onset of facial droop and arm weakness on the left side he is taking coumadin, aspirin and plavix so he is not a tPA candidate. he was transferred from [facility] and initial CT of head showed no acute intracranial abnormality. At the time of this interview, patient is wide awake and alert and he is comprehensive and able to communicate. He denies headaches. Past Med Surg Social Fam HX - Past Medical History Medical history: atrial fibrillation, CHF, coronary artery disease, diabetes, GERD, hyperlipidemia, hypertension, peripheral artery disease, renal disease Additional medical history: psorisis of liver - Past Surgical History Surgical History: colectomy, coronary bypass (CABG), LE stent(s) Additional surgical history: history of open heart in 2004. history of operation for ulerative colitis 1998 - Social History Smoking Status: Former smoker Smokeless Tobacco Status: No Alcohol use: none Drug use: none - Family History Mother Adopted: No Family Member Ethnicity: Non- Living Status: Hx Family Cardiac Disorders: Yes Hx Family Respiratory Disorders: No Hx Family Cancer: No Hx Family GI Disorders: No Hx Family Endocrine Disorder: (DM) Hx Family Neurologic Disorders: No Hx Family HEENT Disorders: No Hx Family Autoimmune Disorders: No Father Living Status: Hx Family GI Disorders: Yes (cirhosis) Medications and Allergies Aspirin 81 mg PO DAILY 04/25/17 [History] Carvedilol [Coreg] 6.25 mg PO BID 04/25/17 [History] Clopidogrel [Plavix] 75 mg PO DAILY 04/25/17 [History] Furosemide [Lasix] 80 mg PO QAM 04/25/17 [History] Isosorbide MONOnitrate (24 HR) [Imdur] 60 mg PO DAILY 04/25/17 [History] Pantoprazole Sodium 40 mg PO DAILY 04/25/17 [History] Warfarin [Coumadin] 2 mg PO MOWEFR 04/25/17 [History] Warfarin [Coumadin] 4 mg PO SUTUTHSA 04/25/17 [History] Atorvastatin [Lipitor] 40 mg PO HS 06/01/18 [History] Calcitriol [Rocaltrol] 0.25 mcg PO DAILY 06/01/18 [History] Furosemide [Lasix] 20 mg PO HS 06/01/18 [History] Insulin DETEMIR [Levemir Flextouch] 15 unit SQ BID 06/01/18 [History] Insulin Regular, Human [Novolin R] 0 unit SQ TID 06/01/18 [History] Iron Polysaccharide Complex [Pro Fe] 180 mg PO DAILY 06/01/18 [History] Magnesium Oxide [Mag-Oxide Magnesium] 400 mg PO DAILY 06/01/18 [History] predniSONE [PredniSONE] 5 mg PO DAILY 06/01/18 [History] 3 Allergy/AdvReac Type Severity Reaction Status Date / Time No Known Allergies Allergy Verified 04/25/17 14:47 All Systems: The remainder of the systems were reviewed and are negative Physical Examination - Vital Signs Vital Signs: Initial Vital Signs Temp Pulse Resp BP Pulse Ox 98.3 F 78 16 166/75 97 06/01/18 00:59 06/01/18 00:59 06/01/18 00:59 06/01/18 00:59 06/01/18 00:59 - Constitutional General appearance: chronically ill - Neurologic Sensorimotor examination: intact Motor examination - right side: 5/5: deltoids, biceps, triceps, wrist flexion, wrist extension, cyber forensic specialist, hip flexors, tibialis Anterior, quadriceps, toe extension (EHL), plantarflexion Motor examination - left side: 3/5: wrist flexion, wrist extension, 4/5: deltoids, biceps, triceps, hip flexors, cyber forensic specialist, quadriceps, tibialis Anterior, toe extension (EHL), plantarflexion Detailed sensory examination: intact (Grossly intact) Posture: other (None) Reflex and gait examination: other (Gait not tested) Reflexes: Biceps: 1+, Triceps: 1+, Brachioradialis: 1+, Patella: 1+, Achilles: 1 + Mental Status Examination: awake, alert, oriented to person, oriented to place, oriented to time, follows commands appropriately, answers questions appropriately, no agnosia, no aphasia, no aproxia, makes eye contact, follows simple commands Cranial nerve examination: PERRL, EOMI, visual neville intact, corneal reflexes brisk symmetrically, sensory to face intact, mastication intact, no facial asymmetry is present (left facial droop noted), no dysarthria (dysarthria noted , language content is normal), hearing is intact symmetrically, soft palate elevates bilaterally upon phonation, gag reflex intact, flexes SCM and trapezius muscles symmetrically with full power, tongue protrudes midline (to the left side) Results - Laboratory Findings CBC and BMP: 06/01/18 01:22 06/01/18 01:22 Abnormal lab findings: Abnormal lab results RBC 4.05 M/mcL (4.19-5.50) L 06/01/18 01:22 Hgb 9.4 g/dL (12.9-16.9) L 06/01/18:22 Hct 32.4 % (37.5-50.1) L 06/01/18:22 MCV 80.0 fL (83.0-100.0) L 06/01/18 01:22 MCH 23.2 pg (28.0-33.3) L 06/01/18 01:22 MCHC 29.0 g/dL (31.6-35.5) L 06/01/18 01:22 RDW 18.3 % (11.5-14.5) H 06/01/18 01:22 PT 28.7 Seconds (9.4-12.1) H 06/01/18 01:22 Sodium 135 mEq/L (136-145) L 06/01/18 01:22 BUN 53 mg/dL (8-23) H 06/01/18 01:22 Creatinine 1.90 mg/dL (0.70-1.30) H 06/01/18 01:22 Est GFR ( Amer) 43 (> 60) L 06/01/18 01:22 Est GFR (Non-Af Amer) 36 (> 60) L 06/01/18 01:22 BUN/Creatinine Ratio 28 (6-26) H 06/01/18 01:22 Glucose 212 mg/dL (70-105) H 06/01/18 01:22 POC Glucose 189 mg/dL (70-99) H 06/01/18 05:50 Hemoglobin A1c 9.1 % (-5.6) H 06/01/18 01:22 Calculated Osmolality 301 (280-300) H 06/01/18 01:22 Total Bilirubin 1.2 mg/dL (0.3-1.0) H 06/01/18 01:22 AST 12 Units/L (13-39) L 06/01/18 01:22 Alkaline Phosphatase 278 Units/L (34-104) H 06/01/18 01:22 Troponin I 0.07 ng/mL (< 0.04) H* 06/01/18 07:51 B-Natriuretic Peptide 3850 pg/mL (Less than 100) H 06/01/18 01:22 HDL Cholesterol 37 mg/dL (40-59) L 06/01/18 01:22 Urine Protein 30 mg/dL (Neg-Trace) H 06/01/18 12:55 Consult Discharge Plan - Plan Referrals: Stuart Cespedes MD [Primary Care Provider] -
[2018-06-01] MEDS ORDERED: Perflutren Lipid Microsphere 1.3 ML in 0.9 % Sodium Chloride 8.7 ML IVP ONE (21:23)
[2018-06-01] MEDS ORDERED: Insulin LISPRO 300 UNITS/3 ML VIAL SQ SCH (23:45)
[2018-06-02] MEDS ORDERED: Acetaminophen 325 MG TABLET PO PRN (05:29)
[2018-06-02] MEDS: Insulin LISPRO 300 UNITS/3 ML VIAL SQ SCH ×3 (07:36→17:02)
--- NOTE | 2018-06-02 14:14 | Neurology Progress Note ---
Date of Encounter: 06/02/18 Time of Encounter: 14:09 Assessment and Plan (1) CVA (cerebral vascular accident) Current Visit: Yes Status: Acute Patient likely developed acute small infarct involving MVC territory due to CT of head being normal and the fact his neurological status improving, it is very likely this is a small lacunar infarct, which could be embolic or small vessel event. echocardiography showed LVEF 40-45% with severe left ventricular diastolic motion abnomality. No evidence of PFO. Nonetheless, he has been on coumadin, aspirn and plavix so there is not much to add in terms of pharmacological intervention. it is determined that this is not a stroke of large size so it would be reasonable to continue him on current anticoagulation and antiplatelet therapy. PT/OT can be beneficial. Do recommend carotid artery duplex study to complete stroke work up. Will sign of at this time please call if any questions. Qualifiers: CVA mechanism: embolism Precerebral and cerebral artery: middle cerebral artery Laterality of affected vessel: right Qualified Code(s): I63.411 - Cerebral infarction due to embolism of right middle cerebral artery Subjective Principal diagnosis: CVA Interval history: Patient seen and examined. He is doing much today in terms of his left sided weakness and his mental status and speech also improved. He completed CT of head without contrast which reported no acute intracranial abnormality. Apparently, small acute infarct can not be excluded. He is able to lift left arm up with muscle power at least 4+/5. Still slight dysarthric, right facial droop is still prominent Objective - Constitutional Vitals: Temp Pulse Resp BP Pulse Ox 97.8 F 69 16 180/92 94 06/02/18 06:47 06/02/18 06:47 06/02/18 06:47 06/02/18 11:41 06/02/18 06:47 - Neurological Exam Motor examination - right side: 5/5: deltoids, biceps, triceps, wrist flexion, wrist extension, cyber ops planner, hip flexors, tibialis Anterior, quadriceps, toe extension (EHL), plantarflexion Motor examination - left side: 4/5: deltoids, biceps, triceps, wrist flexion, wrist extension, hip flexors, cyber ops planner, quadriceps, tibialis Anterior, toe extension (EHL), plantarflexion Sensation intact: Present: intact (Grossly intact) Posture: Present: other (None) Reflex and gait examination: other (Gait not tested) Reflexes: Biceps: 1+, Triceps: 1+, Brachioradialis: 1+, Patella: 1+, Achilles: 1 + Mental Status Examination: Present: awake, alert, oriented to person, oriented to place, oriented to time, follows commands appropriately, answers questions appropriately, no agnosia, no aphasia, no aproxia, makes eye contact, follows simple commands Cranial nerve examination: Present: PERRL, EOMI, visual neville intact, corneal reflexes brisk symmetrically, sensory to face intact, mastication intact, no facial asymmetry is present (left facial droop noted), no dysarthria ( dysarthria noted, language content is normal), hearing is intact symmetrically, soft palate elevates bilaterally upon phonation, gag reflex intact, flexes SCM and trapezius muscles symmetrically with full power, tongue protrudes midline ( to the left side) Results - Laboratory Findings CBC and BMP: 06/01/18 01:22 06/01/18:22 Abnormal lab findings: Abnormal lab results RBC 4.05 M/mcL (4.19-5.50) L 06/01/18: Hgb 9.4 g/dL (12.9-16.9) L 06/01/18: Hct 32.4 % (37.5-50.1) L 06/01/18: MCV 80.0 fL (83.0-100.0) L 06/01/18: MCH 23.2 pg (28.0-33.3) L 06/01/18: MCHC 29.0 g/dL (31.6-35.5) L 06/01/18: RDW 18.3 % (11.5-14.5) H 06/01/18: PT 28.7 Seconds (9.4-12.1) H 06/01/18: Sodium 135 mEq/L (136-145) L 06/01/18: BUN 53 mg/dL (8-23) H 06/01/18: Creatinine 1.90 mg/dL (0.70-1.30) H 06/01/18: Est GFR ( Amer) 43 (> 60) L 10/15/18 01:22 Est GFR (Non-Af Amer) 36 (> 60) L 06/01/18 01:22 BUN/Creatinine Ratio 28 (6-26) H 06/01/18 01:22 Glucose 212 mg/dL (70-105) H 06/01/18 01:22 POC Glucose 148 mg/dL (70-99) H 06/01/18 23:41 Hemoglobin A1c 9.1 % (-5.6) H 06/01/18 01:22 Calculated Osmolality 301 (280-300) H 06/01/18 01:22 Total Bilirubin 1.2 mg/dL (0.3-1.0) H 06/01/18 01:22 AST 12 Units/L (13-39) L 06/01/18 01:22 Alkaline Phosphatase 278 Units/L (34-104) H 06/01/18 01:22 Troponin I 0.07 ng/mL (< 0.04) H* 06/01/18 07:51 B-Natriuretic Peptide 3358 pg/mL (Less than 100) H 06/02/18 01:22 HDL Cholesterol 37 mg/dL (40-59) L 06/01/18 01:22 Urine Protein 30 mg/dL (Neg-Trace) H 06/01/18 12:55 Consult Discharge Plan - Plan Referrals: Stuart Cespedes MD [Primary Care Provider] -
--- NOTE | 2018-06-02 15:04 | Discharge Summary ---
- NOTES TO OUTPATIENT PROVIDER Notes to Outpatient Provider: PCP in 5 to 7 days Orders not resulted at time of discharge: Pending orders 06/01/18 00:43 MR head/brain wo/w con [MR] Routine Date of Encounter: 06/02/18 Time of Encounter: 15:01 - Discharge Diagnosis (1) CVA (cerebral vascular accident) Priority: Primary Status: Acute Assessment and Plan: 67-year-old male with history of atrial fibrillation on anticoagulation, hypertension, diabetes, hyperlipidemia who presented with what appears to be an ischemic stroke with persistent facial droop, slurred speech, and left-sided weakness of the upper extremity. Patient was on aspirin, Plavix and Coumadin with a therapeutic INR, and on Lipitor. Initial CT was unremarkable. Transferred from [place] for further evaluation. Per Neurology, pt likely developed acute small infarct involving MVC territory due to CT of head being normal and the fact his neurological status improving, it is very likely this is a small lacunar infarct, which could be embolic or small vessel event. Was not able to obtain MRI due to pt's stent. MRI checked with the company and found it was not compatible. Echocardiography showed LVEF 40-45% with severe left ventricular diastolic motion abnormality. No evidence of PFO. Bilateral Carotid Duplex appears to be within normal limits. Kept patient NPO due to concern of dysphagia and speech evaluated swallow diet as recommended. Allowed for permissive hypertension. but ok to resume home meds at discharge Qualifiers: CVA mechanism: embolism Precerebral and cerebral artery: middle cerebral artery Laterality of affected vessel: right Qualified Code(s): I63.411 - Cerebral infarction due to embolism of right middle cerebral artery (2) Afib Priority: Secondary Status: Chronic Assessment and Plan: Atrial fibrillation rate controlled on anticoagulation. Last INR 2.5. Resume Coumadin at DC Qualifiers: Atrial fibrillation type: paroxysmal Qualified Code(s): I48.0 - Paroxysmal atrial fibrillation (3) Type 2 diabetes mellitus Priority: Secondary Status: Chronic Assessment and Plan: Blood glucose checks. Moderate hyperglycemia within the range of 140-180 for now. Sliding scale insulin. Qualifiers: Diabetes mellitus senior care insulin use: without medical terminologist use Diabetes mellitus complication status: with kidney complications Diabetes mellitus complication detail: with chronic kidney disease Chronic kidney disease stage : stage 3 (moderate) Qualified Code(s): E11.22 - Type 2 diabetes mellitus with diabetic chronic kidney disease; N18.3 - Chronic kidney disease, stage 3 ( moderate) (4) CKD (chronic kidney disease), stage III Priority: Secondary Status: Acute Assessment and Plan: Chronic kidney disease. Creatinine appears stable. We will monitor. (5) Elevated troponin Priority: Secondary Status: Acute Assessment and Plan: Elevated troponin on initial laboratory workup in the setting of chronic kidney disease and history of coronary artery disease status post CABG. No reports of chest pain. EKG was unremarkable except for findings of atrial fibrillation. Trend troponin for now. Continue telemetry. (6) Congestive heart failure Priority: Secondary Status: Acute Assessment and Plan: Patient noted to have an elevated BNP on blood work. He is currently on Lasix. No evidence of acute exacerbation at this time. We will resume Lasix Qualifiers: Heart failure chronicity: unspecified Qualified Code(s): I50.9 - Heart failure, unspecified Hospital course: Mr. Otero is a 67 year old male with a past medical history of diabetes, hypertension, hyperlipidemia and coronary artery disease status post CABG, and atrial fibrillation on anticoagulation who presents with stroke-like symptoms. According to the patient's , he started developing left-sided facial droop and slurred speech while eating dinner around 5 pm. His states that he began coughing shortly thereafter, however does not suspect that he aspirated. Patient was taken to [place] for further workup. His deficits appear to have progressed to include left-sided upper extremity weakness. Patient is currently on aspirin, Plavix and warfarin and was therefore not a candidate for TPA. His INR was noted to be 2.9. CT scan of the head was negative. Patient was given 10 mg of IV labetalol for a blood pressure of 189/90 and subsequently transferred to [place] for further evaluation. See assessment and plan for hosp course. Discharge discussed with: patient - Time Spent with Patient Total time spent providing and/or coordinating discharge services: Greater than 30 minutes - Discharge Medications Home Medications: Aspirin 81 mg PO DAILY 04/25/17 [History] Carvedilol [Coreg] 6.25 mg PO BID 04/25/17 [History] Clopidogrel [Plavix] 75 mg PO DAILY 04/25/17 [History] Furosemide [Lasix] 80 mg PO QAM 04/25/17 [History] Isosorbide MONOnitrate (24 HR) [Imdur] 60 mg PO DAILY 04/25/17 [History] Pantoprazole Sodium 40 mg PO DAILY 04/25/17 [History] Warfarin [Coumadin] 2 mg PO MOWEFR 04/25/17 [History] Warfarin [Coumadin] 4 mg PO SUTUTHSA 04/25/17 [History] Atorvastatin [Lipitor] 40 mg PO HS 06/01/18 [History] Calcitriol [Rocaltrol] 0.25 mcg PO DAILY 06/01/18 [History] Furosemide [Lasix] 20 mg PO HS 06/01/18 [History] Insulin DETEMIR [Levemir Flextouch] 15 unit SQ BID 06/01/18 [History] Insulin Regular, Human [Novolin R] 0 unit SQ TID 06/01/18 [History] Iron Polysaccharide Complex [Pro Fe] 180 mg PO DAILY 06/01/18 [History] Magnesium Oxide [Mag-Oxide Magnesium] 400 mg PO DAILY 06/01/18 [History] predniSONE [PredniSONE] 5 mg PO DAILY 06/01/18 [History] Allergies/Adverse Reactions: 3 Allergy/AdvReac Type Severity Reaction Status Date / Time No Known Allergies Allergy Verified 04/25/17 14:47 Date of admission: 06/01/18 01:37 Primary care physician: Stuart Cespedes MD Consults: 06/01/18 00:46 Consult to Neurology [CONS] Routine Consulting Provider: [facility] Reason for Consult: Stroke Call Completed: No Consult to Occupational Therapy [CONS] Routine Comment: Evaluate, develop and implement POC Reason for Consult: Stroke Does patient have active BEDREST order?: Yes Is patient medically & hemodynamically stable?: Yes Consult to Physical Therapy [CONS] Routine Comment: Evaluate, develop and implement POC Reason for Consult: Stroke Does patient have active BEDREST order?: Yes Is patient medically & hemodynamically stable?: Yes Consult to Medical Esthetician [CONS] Routine Reason for SW Consult: Stroke 06/01/18 05:17 Consult to Speech Therapy [CONS] Routine Comment: Evaluate, develop and implement POC Reason for Consult: Stroke. Assess for dysphagia Call Completed: No Discharging clinician: Denita Travis Anticipated date of discharge: 06/02/18 - Constitutional Vitals: Temp Pulse Resp BP Pulse Ox 97.8 F 69 16 180/92 94 06/02/18 06:47 06/02/18 06:47 06/02/18 06:47 06/02/18 11:41 06/02/18 06:47 General appearance: Present: A&O X 3 Exam: Exam: General: Alert and oriented 3 lying in bed in no acute distress Skin:Normal color, no rash, no lesions. HEENT:EOM, pupils equal, round and reactive. Cardiovascular:Normal S1 & S2, no rubs, murmurs or gallops. No JVD. Pulse regular. Lungs:Normal breath sounds, no wheezes or crackles. Abdomen:Soft, non-tender, no rigidity. Extremities:No deformity, no edema or tenderness, no joint swelling or clubbing. Neurological: Normal cognition; left-sided facial droop noted. Cranial nerves II through XII intact. Left upper extremity muscle strength 2 out of 5. Right upper extremity muscle strength 5 out of 5. Lower extremity muscle strength 5 out of 5 bilaterally. Sensation intact Pulses:Carotid and radial pulses normal +2. Rest of the physical exam is non contributory - Patient Status Disposition: Home, Self-Care Condition: Fair Overall status at discharge: patient is progressing back to baseline - Discharge Instructions Follow Up With: Stuart Cespedes MD [Primary Care Provider] - - Diet and Activity Activity: as per physical therapy, increase activity as tolerated Diet: low fat, low cholesterol, low salt diet
[2018-06-02 15:19] VITALS: BP 174/81
--- NOTE | 2018-06-02 18:50 | Physician Discharge Referral ---
ExtendedCare Referral Info Transfer To: Swing Bed - Transfer Medications Home Medications: Aspirin 81 mg PO DAILY 04/25/17 [History] Carvedilol [Coreg] 6.25 mg PO BID 04/25/17 [History] Clopidogrel [Plavix] 75 mg PO DAILY 04/25/17 [History] Furosemide [Lasix] 80 mg PO QAM 04/25/17 [History] Isosorbide MONOnitrate (24 HR) [Imdur] 60 mg PO DAILY 04/25/17 [History] Pantoprazole Sodium 40 mg PO DAILY 04/25/17 [History] Warfarin [Coumadin] 2 mg PO MOWEFR 04/25/17 [History] Warfarin [Coumadin] 4 mg PO SUTUTHSA 04/25/17 [History] Atorvastatin [Lipitor] 40 mg PO HS 06/01/18 [History] Calcitriol [Rocaltrol] 0.25 mcg PO DAILY 06/01/18 [History] Furosemide [Lasix] 20 mg PO HS 06/01/18 [History] Insulin DETEMIR [Levemir Flextouch] 15 unit SQ BID 06/01/18 [History] Insulin Regular, Human [Novolin R] 0 unit SQ TID 06/01/18 [History] Iron Polysaccharide Complex [Pro Fe] 180 mg PO DAILY 06/01/18 [History] Magnesium Oxide [Mag-Oxide Magnesium] 400 mg PO DAILY 06/01/18 [History] predniSONE [PredniSONE] 5 mg PO DAILY 06/01/18 [History] Allergies/Adverse Reactions: 3 Allergy/AdvReac Type Severity Reaction Status Date / Time No Known Allergies Allergy Verified 04/25/17 14:47 - Respiratory Orders Smoking Cessation: Smoking cessation has been advised. For more information, call the [place] Tobacco Quit Line at 4-106-AVMY-NOW. - Advance Directives Code Status: Full Code - Diet Orders Regular (Diabetic Diet.) CERTIFICATION: I certify that the transfer of the above named patient to an Extended Care Facility is necessary for the continuing treatment of the diagnosis listed. The above information is true and accurate reflection of patient's current condition. Confidential - Redisclosure prohibited without a patient's written consent.
== END 2018-06-02 20:25 | disposition home or self-care (01) | DRG 65 ==
LOC: 3BNU
PROVIDERS: ADMIT Internal Medicine; ATTEND Internal Medicine